=== PATIENT | female | born 2000 | race African-American/Black ===

== ENCOUNTER 2020-03-20 11:12 | Outpatient (CLI) | payer OTHER, SELFPAY ==
--- NOTE | ~2020-03-20 | XR_ITS ---
EXAMINATION: XR shunt series DATE: 03/20/2020 11:39 INDICATION: Presence of other specified devices. Ventriculoperitoneal shunt. TECHNIQUE: 2 views of the skull, single view of the chest, and single view of the abdomen on a total of 6 radiographs were obtained. COMPARISON: None. FINDINGS: There is a right-sided ventriculoperitoneal shunt with tip in the right pelvis. No fracture or kink of the radiopaque portion. There is mild elevation of right hemidiaphragm. No pneumonia or p leural effusion. The heart size is normal. There are no dilated loops of bowel. IMPRESSION: 1. Normal ventriculoperitoneal shunt. Reviewed, dictated and finalized at location A.
== END 2020-03-20 11:13 | disposition home or self-care (01) ==
LOC: ANHIMG 11:21
PROVIDERS: PCP Family Medicine; Visit Provider Psychiatry & Neurology Neurology
DX: Z97.8 Presence of other specified devices (principal)
CPT/HCPCS: 70250; 71045; 74018

== ENCOUNTER 2022-03-12 15:46 | Emergency (ER) | payer OTHER, SELFPAY ==
[2022-03-12 15:56] VITALS: BP 133/105; PULSE 79; RESP 18; TEMP 37.7; O2SAT 100
--- NOTE | 2022-03-12 15:57 | ED.URI ---
HPI - URI/Sore Throat General Chief Complaint: Upper Respiratory Infection Stated Complaint: Sore Throat,Headache Time Seen by Provider: 03/12/22 15:57 Source: patient Mode of arrival: ambulatory Limitations: no limitations History of Present Illness HPI Narrative: 21 yo F presents with c/o nasal congestion, sinus pressure, sore throat, headaches for 2 to 3 days. No fever/chills. No cough, bodyaches or fatigue. No taking any OTC meds to treat her symptoms. All systems reviewed and negative except as noted above. Related Data Home Medications Medication Instructions Recorded Confirmed amlodipine 5 mg tablet 5 mg PO DAILY 03/04/21 03/12/22 omeprazole magnesium 20 mg 20 mg PO TID 03/04/21 03/12/22 capsule,delayed release albuterol sulfate 90 mcg/actuation 1 inh inhalation DIRECTED 03/12/22 03/12/22 aerosol inhaler (ProAir HFA) Allergies Allergy/AdvReac Type Severity Reaction Status Date / Time No Known Allergies Allergy Verified 03/12/22 15:51 Review of Systems Review of Systems: CONSTITUTIONAL: Denies fever, chills, or sweats. EYES: Denies visual changes, redness, or discharge. ENT: Reports rhinorrhea, congestion, sore throat, sinus pressure. Denies otalgia. CARDIOVASCULAR: Denies chest pain, palpitations, or edema. RESPIRATORY: Denies cough or dyspnea. GASTROINTESTINAL: Denies abdominal pain, nausea, vomiting, or diarrhea. GENITOURINARY: Denies dysuria or hematuria. SKIN: Denies rash or itching. MUSCULOSKELETAL: Denies back pain, joint pain, or myalgia. NEUROLOGIC: Denies headache, numbness, or weakness. PSYCHIATRIC: Denies anxiety or depression. All other systems reviewed are negative, except as documented in HPI. PMFSH Social History Social History Smoking status: Never smoker Alcohol intake: never Comments At time of signature, agree with nursing past medical, surgical, social and family history. There is no relevant family history pertinent to the presenting complaint. Exam Narrative: GENERAL: This is a well-nourished, well-developed patient, in no apparent distress. HEAD: normocephalic, atraumatic. EYES: PERRL. Sclera clear/white. Vision is grossly intact. EARS: External ears normal, auditory canals clear and without drainage, TMs normal without perforation. Hearing grossly intact. NOSE: External nose normal with clear nasal drainage, erythema and mild swelling to both nares. Mild nasal congestion. THROAT: Mucous membranes moist, mild erythema to posterior pharynx with clear postnasal drainage. NECK: Neck supple, non-tender without lymphadenopathy, masses or thyromegaly. CARDIOVASCULAR: Regular rate and rhythm without murmurs, gallops, or rubs. RESPIRATORY: Clear to auscultation. Breath sounds equal bilaterally. No wheezes, rales, or rhonchi. SKIN: warm, Dry, intact with no suspicious lesions or rash, good texture and turgor. NEURO: awake, alert, and oriented to person, place and time. There were no obvious focal neurologic abnormalities. EXTREMITIES: No joint tenderness, effusion, or edema noted. Course Course Level of Care: Express Care Visit Vital Signs Vital signs: Reviewed MDM - URI/Sore Throat MDM Narrative Medical decision making narrative: Patient is aware of diagnosis, understands and agrees to treatment plan. Anticipatory guidance given. Patient agrees to follow-up as directed and is aware of reasons to seek care at the emergency department. Portions of this record may have been created with voice recognition software Discharge Plan Discharge Clinical Impression: Acute viral sinusitis Patient Disposition: Home, Self-Care Condition: Stable Instructions: Antibiotic Form Additional Instructions: Your covid and strep test were negative today. Take medications as prescribed to treat symptoms. Take ibuprofen or tylenol as needed to treat pain. Drink plenty of water and rest. See your doctor if symptoms
== END 2022-03-12 16:20 | disposition home or self-care (01) ==
PROVIDERS: Emergency Provider Nurse Practitioner Family; PCP Nurse Practitioner Family
DX: J01.90 Acute sinusitis, unspecified (principal); Z20.822 Contact with and (suspected) exposure to COVID-19; J45.909 Unspecified asthma, uncomplicated; K21.9 Gastro-esophageal reflux disease without esophagitis
CPT/HCPCS: 87081; 87426; 87880; 99213; C9803; G0463

== ENCOUNTER 2022-06-02 08:50 | Emergency (ER) | payer OTHER, SELFPAY ==
--- NOTE | 2022-06-02 08:55 | ED.URI ---
HPI - URI/Sore Throat General Chief Complaint: Upper Respiratory Infection Stated Complaint: uri Time Seen by Provider: 06/02/22 09:20 Source: patient and RN notes reviewed Mode of arrival: ambulatory Limitations: no limitations History of Present Illness HPI Narrative: [age] year female presents to the [facility] with body aches, fevers since yesterday. No treatment prior to arrival Reports nasal congestion and cough. Reports fevers. Related Data Home Medications Medication Instructions Recorded Confirmed amlodipine 5 mg tablet 5 mg PO DAILY 03/04/21 03/12/22 omeprazole magnesium 20 mg 20 mg PO TID 03/04/21 03/12/22 capsule,delayed release albuterol sulfate 90 mcg/actuation 1 inh inhalation DIRECTED 03/12/22 03/12/22 aerosol inhaler (ProAir HFA) Allergies Allergy/AdvReac Type Severity Reaction Status Date / Time No Known Allergies Allergy Verified 03/12/22 15:51 Review of Systems Review of Systems: All systems reviewed & are unremarkable except as noted in HPI and below Constitutional: Constitutional: Reports as per HPI, Denies chills, Reports fatigue and Reports fever(s) Eyes: Eyes: Reports no additional eye complaints ENT: Reports as per HPI and Reports nasal congestion Cardiovascular: Cardiovascular: Reports no additional cardiovascular complaints Respiratory: Respiratory: Reports no additional respiratory complaints Gastrointestinal: Gastrointestinal: Reports no additional gastrointestinal complaints Musculoskeletal: Musculoskeletal: Reports no additional musculoskeletal complaints Integumentary/Breasts: Skin/Breast: Reports system reviewed and no additional complaints, except as docu Neurologic: Reports system reviewed and no additional complaints, except as documented Psychiatric: Psychiatric: Reports no additional psychiatric complaints Allergic/Immunologic: Allergic/Immunologic: Reports no additional allergic/immunologic complaints PMFSH Social History Social History Smoking status: Never smoker Alcohol intake: never Comments At the time of my signature, I reviewed and agree with the nursing past medical, surgical, social, and family history. There is no relevant family history pertinent to the patient complaint. Exam Const: General: healthy appearing, no acute distress, alert and well nourished Nutritional Appearance: well nourished Orientation/consciousness: patient oriented x3 Limitations: no limitations HENMT: Head: normal to inspection Ears: external ears normal, TM's normal bilaterally and EAC's normal Face/Nose/Sinus: Normal external nose present and Normal nares present Face and sinus: normal facial exam Mouth: Yes Normal oral and palatal mucosa present, Yes lip normal and Yes moist mucous membranes Throat: posterior oropharynx normal and uvula midline Eyes: General: appearance normal, both eyes and all related structures Conjunctivae: conjunctivae normal Pupils: Equal, round and reactive pupils present Neck: Neck: normal visual inspection, no lymphadenopathy and no meningeal signs Chest: Chest palpation & inspection: normal inspection of the chest Resp: Effort & Inspection: normal respiratory effort and no use of accessory muscles Auscultation: clear to auscultation bilaterally, no crackles, no rales, no rhonchi and no wheezes Cardio: Rate: regular rate Rhythm: regular rhythm Skin: General skin exam: normal color Rashes: no rashes Wounds: no wounds Neuro: General: patient oriented x3, moves all extremities, no meningeal signs and no focal motor deficits Cranial nerves: Yes Equal, round and reactive pupils present Speech: normal speech Gait exam (Neuro): Normal gait present Extrem: General: normal to inspection, full ROM and capillary refill normal Psych: Appearance: grossly normal and well kempt Mental Status: mental status grossly normal Affect: normal affect Attitude: cooperative Thou
[2022-06-02 09:06] VITALS: BP 98/72; PULSE 110; RESP 20; TEMP 39.2; O2SAT 100
[2022-06-02 09:29] VITALS: TEMP 38.7
[2022-06-02] MEDS: ACETAMINOPHEN 500 MG TABLET 1000 MG PO (09:29)
== END 2022-06-02 09:40 | disposition home or self-care (01) ==
PROVIDERS: Emergency Provider Nurse Practitioner; PCP Nurse Practitioner Family
DX: J10.1 Influenza due to other identified influenza virus with other respiratory manifestations (principal); Z20.822 Contact with and (suspected) exposure to COVID-19
CPT/HCPCS: 87081; 87426; 87804; 87880; 99213; A9270; C9803; G0463

== ENCOUNTER 2022-06-20 17:07 | Emergency (ER) | payer OTHER, SELFPAY ==
--- NOTE | ~2022-06-20 | XR_ITS ---
EXAMINATION: XR ankle LT min 3V DATE: 06/20/2022 18:38 INDICATION: Left ankle pain, initial encounter TECHNIQUE: Anteroposterior, lateral, mortise, and additional oblique view of the ankle were obtained. COMPARISON: None. FINDINGS: There is an acute, traumatic, closed, oblique fracture of the distal fibula located 3 cm ab ove the tibial plafond. There is diffuse soft tissue swelling of ankle. No additional fracture is willy ntified. IMPRESSION: 1. Acute fracture of the distal fibula. Reviewed, dictated and finalized at location F. ER BU[facility]ER
[2022-06-20 18:00] VITALS: BP 166/84; PULSE 84; RESP 14; TEMP 37.1; O2SAT 100
--- NOTE | 2022-06-20 19:20 | ED.LOWEXIN ---
HPI - Extremity Injury (Lower) General Chief Complaint: Extremity Injury, Lower Stated Complaint: L foot pain s/p fall Time Seen by Provider: 06/20/22 19:04 History of Present Illness HPI Narrative: 21-year-old morbidly obese female presents to the emergency room for evaluation of left ankle pain. Patient states that she was carrying a load of laundry down the stairs when she slipped and fell. Patient was not ambulatory following the injury. Denies any other injuries Related Data Home Medications Medication Instructions Recorded Confirmed amlodipine 5 mg tablet 5 mg PO DAILY 03/04/21 03/12/22 omeprazole magnesium 20 mg 20 mg PO TID 03/04/21 03/12/22 capsule,delayed release albuterol sulfate 90 mcg/actuation 1 inh inhalation DIRECTED 03/12/22 03/12/22 aerosol inhaler (ProAir HFA) Allergies Allergy/AdvReac Type Severity Reaction Status Date / Time No Known Allergies Allergy Verified 03/12/22 15:51 Review of Systems Review of Systems: CONSTITUTIONAL: Denies fever, chills, or sweats. EYES: Denies visual changes, redness, or discharge. ENT: Denies rhinorrhea, congestion, sore throat, or otalgia. CARDIOVASCULAR: Denies chest pain, palpitations, or edema. RESPIRATORY: Denies cough or dyspnea. GASTROINTESTINAL: Denies abdominal pain, nausea, vomiting, or diarrhea. GENITOURINARY: Denies dysuria or hematuria. SKIN: Denies rash or itching. MUSCULOSKELETAL: Reports left ankle pain NEUROLOGIC: Denies headache, numbness, dizziness, or weakness. PSYCHIATRIC: Denies anxiety or depression. [facility] Social History Social History Smoking status: Never smoker Alcohol intake: never Exam Narrative: GENERAL: Well-appearing, well-nourished, morbidly obese, and in obvious acute distress. HEAD: Normocephalic, atraumatic. EYES: Conjunctivae normal, PERRLA and EOMI. CHEST: Clear to auscultation. No respiratory distress. No wheezes rales or rhonchi. HEART: Regular rate and rhythm. No murmur heard. Normal peripheral pulses. ABDOMEN: Soft, nontender, nondistended, normal active bowel sounds. EXTREMITIES: LLE: +TTP to posterior lower extremity with diffuse STS; distal pulses present; neurovascular is intact distally SKIN: Warm, dry, no rash. No noted wounds NEURO: No focal deficits. Alert and oriented x3. MAEW. CN's II-XI intact bilaterally PSYCH: Cooperative. Normal mood and affect. Course Course Emergency Course: 1929: Consulted Dr. Boggs. He recommends splinting the patient having her follow-up with him in the office later this week Vital Signs Vital signs: Vital Signs Temperature 37.1 C 06/20/22 18:00 Pulse Rate 84 06/20/22 18:00 Respiratory Rate 14 06/20/22 18:00 Blood Pressure 166/84 H 06/20/22 18:00 Pulse Oximetry 100 06/20/22 18:00 Oxygen Delivery Room Air 06/20/22 18:00 Temperature 37.1 C 06/20/22 18:00 Pulse Rate 90 06/20/22 19:45 Respiratory Rate 14 06/20/22 18:00 Blood Pressure 123/86 06/20/22 19:45 Pulse Oximetry 100 06/20/22 19:45 Oxygen Delivery Room Air 06/20/22 18:00 Discharge Plan Discharge Clinical Impression: Closed fibular fracture Patient Disposition: Home, Self-Care Condition: Stable Instructions: Antibiotic Form Prescriptions: New hydrocodone-acetaminophen 5-325 mg tablet 1 tablet PO Q8H PRN (Reason: pain) Qty: 14 0RF No Action albuterol sulfate [ProAir HFA] 90 mcg/actuation HFA aerosol inhaler 1 inh INHALATION DIRECTED fluticasone propionate [Flonase Allergy Relief] 50 mcg/actuation spray,suspension 1 spray intranasal BID Qty: 16 0RF Rx Instructions: administer into each nostril ibuprofen 800 mg tablet 800 mg PO TID PRN (Reason: pain) Qty: 30 0RF oseltamivir [Tamiflu] 75 mg capsule 75 mg PO Q12H 5 Days Qty: 10 0RF omeprazole magnesium 20 mg capsule,delayed release(DR/EC) 20 mg PO TID amlodipine 5 mg tablet 5 mg PO D
[2022-06-20] MEDS: HYDROcodone/acetaminophen (*CRX) 5-325 MG TABLET 1 TAB PO (19:38)
[2022-06-20 19:45] VITALS: BP 123/86; PULSE 90; O2SAT 100
--- NOTE | 2022-06-24 04:00 | PC.NURSE ---
Addendum, CSM intaked after right posterior short leg was placed.
== END 2022-06-20 20:13 | disposition home or self-care (01) ==
PROVIDERS: Emergency Provider Nurse Practitioner Family; PCP Nurse Practitioner Family
DX: S82.832A Other fracture of upper and lower end of left fibula, initial encounter for closed fracture (principal); W10.9XXA Fall (on) (from) unspecified stairs and steps, initial encounter; E66.01 Morbid (severe) obesity due to excess calories; Z68.44 Body mass index [BMI] 60.0-69.9, adult
CPT/HCPCS: 29515; 73610; 99284; A9270

== ENCOUNTER 2022-08-29 20:32 | Observation (INO) | payer OTHER, SELFPAY ==
[2022-08-23 10:39] VITALS: BMI 64.0
--- NOTE | 2022-08-23 10:46 | PC.NURSE ---
Report to the Outpatient Waiting Room, entrance under the green pavilion located off [facility], at time 0730 on date 08/28/22. Planned Procedure Time: 0930. Time changes happen often and if your time is changed the preop area will call you the afternoon before. - You and your visitor will be asked to self-screen and do not enter if you have any COVID symptoms. - Only one visitor is requested with a max of two and NO children visitors are allowed at this time. - The patient visitor may be requested to leave or wait in car when not with patient due to distancing restrictions. - A mask is optional within the hospital. Patients may have clear liquids (water, carbonated beverages, clear teas, apple juice) until 3 hours prior to surgery with a maximum of 20 ounces. - No food from midnight until time of surgery Take the following medications with a SIP of water the morning of surgery: INHALER, AMLODIPINE, PROPRANOLOL, SERTRALINE, TRAMADOL Medications to discontinue per physician: NAPROXEN Date to take last dose: NO MORE UNTIL AFTER SURGERY Please no make-up, nail ivorian, hairspray, perfume, deodorant, or body powder the day of surgery. No jewelry (including any body piercings) or valuables the day of surgery, leave them at home. Please take a shower or bath the night before, or the morning of, surgery with an antibacterial soap. Wear comfortable, loose fitting clothing. - Jewelry must be removed prior to entering the operating room. Rings and piercings that are not removed may be cut off. - The hospital will not accept responsibility for valuables. - Please leave all valuables, including medications, at home the day of surgery. If you are going home after surgery, a licensed log driver must drive you home. - NO public transportation without another adult if you receive anesthesia. - We recommend that an adult stay with you for 24 hours following discharge. - We also recommend that you do not drive, make important decision, drink alcoholic beverages, or take any drugs that were not prescribed by your health care provider for at least 24 hours after your discharge time. Follow any additional instructions given to you from your surgeon. If you or anyone in your household have experienced Covid symptoms in the past week, please notify your surgeon or the nurse liaison at the phone number below for possible testing. Telephone instructions given to PT Aislinn RIDER and asked if any additional questions and then verbalized understanding. Patient advised to call surgeon office or pre surgery nurse liaison [phone] if any additional questions.
--- NOTE | 2022-08-27 21:44 | PM.IMHP ---
H&P: HPI History of Present Illness Date/Time: 08/27/22 21:44 Chief Complaint: Left ankle fracture Narrative: 21yo with ankle fx. Now with nonunion/ displacement and poor alignment of ankle joint. Unable to walk. Review of Systems Review of Systems: All systems reviewed & are unremarkable except as noted in HPI and below Constitutional: Constitutional: Reports as per HPI, Denies chills, Reports fatigue and Reports fever(s) Eyes: Eyes: Reports no additional eye complaints ENT: Reports as per HPI and Reports nasal congestion Cardiovascular: Cardiovascular: Reports no additional cardiovascular complaints Respiratory: Respiratory: Reports no additional respiratory complaints Gastrointestinal: Gastrointestinal: Reports no additional gastrointestinal complaints Musculoskeletal: Musculoskeletal: Reports no additional musculoskeletal complaints Integumentary/Breasts: Skin/Breast: Reports system reviewed and no additional complaints, except as docu Neurologic: Reports system reviewed and no additional complaints, except as documented Psychiatric: Psychiatric: Reports no additional psychiatric complaints Allergic/Immunologic: Allergic/Immunologic: Reports no additional allergic/immunologic complaints [facility] Past Medical History Medical History (Updated 08/27/22 @ 21:54 by Jackson Gomez MD) Syndesmotic disruption of left ankle Social History Social History Smoking status: Never smoker Alcohol intake: never Substance use: never Substance use type: does not use Living arrangements: with family Spiritual care concerns: No Meds Home Medications and Allergies Home Medications Medication Instructions Recorded Confirmed Type omeprazole magnesium 20 mg 20 mg PO TID 03/04/21 08/23/22 History capsule,delayed release albuterol sulfate 90 mcg/actuation 1 inh inhalation DIRECTED 03/12/22 08/23/22 History aerosol inhaler (ProAir HFA) fluticasone propionate 50 1 spray intranasal BID #16 grams 03/12/22 08/23/22 Rx mcg/actuation nasal spray,suspension (Flonase Allergy Relief) sertraline 150 mg capsule 150 mg PO DAILY 08/10/22 08/23/22 History tramadol 50 mg tablet 50 mg PO BID PRN pain #30 tabs 08/10/22 08/23/22 Rx amlodipine 10 mg tablet 10 mg PO DAILY 08/23/22 08/23/22 History famotidine 40 mg tablet 40 mg PO BID 08/23/22 08/23/22 History naproxen sodium 220 mg capsule 220 mg PO Q12H PRN Pain 08/23/22 08/23/22 History propranolol 10 mg tablet 20 mg PO TID PRN Anxiety 08/23/22 08/23/22 History Allergies Allergy/AdvReac Type Severity Reaction Status Date / Time No Known Allergies Allergy Verified 08/23/22 10:35 Exam Const: General: No confusion Orientation/consciousness: No confusion HENMT: Head: normal to inspection, normocephalic and atraumatic Neck: Neck: supple and nontender Chest: Chest palpation & inspection: normal inspection of the chest Resp: Effort & Inspection: normal respiratory effort and no audible wheezes Cardio: Rate: regular rate : General: Yes deferred Skin: General skin exam: no rashes or lesions noted Neuro: General: No confusion Cranial nerves: Yes Normal hearing present Extrem: General: capillary refill normal Right upper extremity: normal to inspection Left upper extremity: normal to inspection Right lower extremity: normal to inspection and hip/thigh Details: normal to inspection Left lower extremity: hip/thigh Details: normal to inspection, knee Details: normal to inspection and knee ligament exam normal Details: anterior drawer test normal, valgus stress test normal, varus stress test normal and George's test normal, ankle (no calf tenderness) Details: abnormal to inspection ( Obvious swelling at the ankle joint), tenderness ( lateral malleolus), swelling (moderate lateral ankle), abnormal ROM Details: pain with active ROM Details: with plantar flexion and with dorsiflexion and
[2022-08-28] VITALS (25 sets, daily range): BP systolic 106–149; BP diastolic 66–90; PULSE 80–111; RESP 14–24; TEMP 36.2–37; O2SAT 94–100
--- NOTE | 2022-08-28 07:09 | WPDHPUPDATE1 ---
History and Physical Update Update Date/Time: 08/28/22 07:09 History and Physical has been reviewed, including an updated exam of the patient. There are NO changes in the patient's condition. Risks, benefits, and alternatives have been discussed and questions answered. Patient agrees to proceed with procedure.
--- NOTE | 2022-08-28 07:45 | ECG_ITS ---
Measurements Intervals [place] Rate: 79 P: 65 MI: 215 QRS: 19 QRSD: 96 T: 43 QT: 372 QTc: 428 Interpretive Statements SINUS RHYTHM WITH FIRST DEGREE AV BLOCK BORDERLINE ECG NO PREVIOUS ECG AVAILABLE FOR COMPARISON Electronically Signed On 08-28-2022 8:24:36 MAIL HANDLER ASSISTANT by Gokul Rosenthal D.O.
[2022-08-28] MEDS: ACETAMINOPHEN 500 MG TABLET 1000 MG PO (07:54)
--- NOTE | 2022-08-28 08:06 | WPDANESEPPF ---
Anes - Initial Pre Proc Eval Procedure: Operation Date: 08/28/22 09:30 Proposed Procedures p Open Reduction Internal Fixation Left Ankle Fracture - Jackson Gomez MD Date/Time: 08/28/22 08:06 Surgeon: Jackson Gomez MD Pre Op Diagnosis: left ankle fx Patient Data Age: 21 Gender: F Height: 1.65 m Weight: 174.65 kg Allergies Allergy/AdvReac Type Severity Reaction Status Date / Time No Known Allergies Allergy Verified 08/23/22 10:35 Home Medications Medication Instructions Recorded Confirmed Type omeprazole magnesium 20 mg 20 mg PO TID 03/04/21 08/23/22 History capsule,delayed release albuterol sulfate 90 mcg/actuation 1 inh inhalation DIRECTED 03/12/22 08/23/22 History aerosol inhaler (ProAir HFA) fluticasone propionate 50 1 spray intranasal BID #16 grams 03/12/22 08/23/22 Rx mcg/actuation nasal spray,suspension (Flonase Allergy Relief) sertraline 150 mg capsule 150 mg PO DAILY 08/10/22 08/28/22 History tramadol 50 mg tablet 50 mg PO BID PRN pain #30 tabs 08/10/22 08/28/22 Rx amlodipine 10 mg tablet 10 mg PO DAILY 08/23/22 08/28/22 History famotidine 40 mg tablet 40 mg PO BID 08/23/22 08/28/22 History naproxen sodium 220 mg capsule 220 mg PO Q12H PRN Pain 08/23/22 08/28/22 History propranolol 10 mg tablet 20 mg PO TID PRN Anxiety 08/23/22 08/28/22 History Patient hx anesthesia problems: none Family hx anesthesia problems: none Results Review: All pre-operative results and documents have been reviewed as part of the pre-operative evaluation. [facility] Past Medical History Medical History (Updated 08/28/22 @ 08:08 by Joe Lares MD) Anxiety Asthma Chronic GERD Depression HTN (hypertension) Morbid obesity with BMI of 60.0-69.9, adult [place] treated with BiPAP Syndesmotic disruption of left ankle Surgical History Surgical History (Updated 08/28/22 @ 08:08 by Joe Lares MD) [employer] WORKER (ventriculoperitoneal) shunt status Social History Social History Smoking status: Never smoker Alcohol intake: never Substance use: never Substance use type: does not use Living arrangements: with family Spiritual care concerns: No Anes - Eval Final PreProcedure Day of Procedure 08/28/22 08:06 Patient weight: super morbidly obese Heart: regular rate and rhythm Lungs: clear to auscultation and normal air movement Airway: Mallampati scale class II Neurological: alert and oriented Last oral intake: >/= 8 hours ASA classification: IV Emergent: no Anesthetic plan: proceed Anesthesia type and monitoring: general LMA and ETT Results Review: All pre-operative results and documents have been reviewed as part of the pre-operative evaluation. Informed Consent: The patient's anesthetic plan and its attendant risks and benefits were discussed with the patient/family/POA. Questions were solicited and answers provided to the satisfaction of the patient/family/POA.
[2022-08-28] MEDS: LACTATED RINGERS 1,000 ML 30 ML IV CONT ×2 (08:30→12:30)
[2022-08-28] MEDS: KETOROLAC 15 MG/ML VIAL (*BKC) IV PUSH (08:43)
[2022-08-28] MEDS: ceFAZolin 3 GM/D5W 100 ML 100 ML IVPB (09:13)
[2022-08-28] MEDS: BUPIVACAINE/EPINEPHRINE 0.5% 30 ML VIAL INFILTRATE (09:40)
--- NOTE | 2022-08-28 11:24 | W.PM.PROC2 ---
Procedure Note - Detailed Date of Procedure 08/28/22 Pre-op Diagnosis left ankle fx,Left distal syndesmosis disruption Post-op Diagnosis Same Procedure Performed open reduction internal fixation left ankle bimalleolar fracture and distal syndesmosis. 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 Initial attempted close treatment. She now has delayed union of the fracture, the displacement and widening of the ankle mortise. She presents for operative treatment. Description of Procedure After informed consent, the operative extremity was marked in the preoperative holding area. Patient received intravenous antibiotics.? Patient was then taken to the operating room and underwent general anesthesia by the anesthesia team.? Positioned supine on the operating room table with a soft bump under the ipsilateral hip. A time-out was performed confirming the patient, site of the surgery, operative plan. Left Lower extremity then prepped and draped in the usual sterile surgical fashion using ChloraPrep skin solution. Foot and ankle exsanguinated and a thigh tourniquet inflated to 250 mmHg.? Longitudinal incision made over the lateral ankle distal fibula with a 15 blade knife.? Hemostasis controlled with electrocautery.? Full-thickness soft tissue flaps developed and the fascia was incised in line with the skin incision. Fracture identified and cleared with a dental pick, irrigation and rongeur. Fracture reduced and held with bone-holding clamp.? Image intensification confirmed reduction of the fracture and the ankle mortise.? Fixation achieved with intramedullary fibula nail.? Stab incision made distal to the fibula.? Blunt dissection of the tip of the fibula and a guide pin was placed.? This was then over reamed.? Nail inserted to the correct depth and verified with image intensification.? 2.7 mm locking screws distally x2.? Proximal locking deployment method utilized. Good alignment and stability of the fracture noted. Image intensification used to confirm reduction of the fracture and placement of the hardware. ? Medial side then addressed.? Longitudinal incision made with a 15 blade knife over the medial malleolus fracture.? Hemostasis controlled with electrocautery.? Fascia incised in line with skin incision.? Periosteum cleared from the medial malleolus fracture.? Fracture reduced and provisionally pinned.? Fixation achieved with 4.0 mm partially threaded cancellous screw placed in cannulated screw fashion.? Image intensification confirmed reduction of the fracture and placement of the hardware.? Stress of the ankle performed? Showed instability of the ankle mortise and the syndesmosis.? Widening of the syndesmosis with valgus stress noted.? Posterior malleolus noted to be reduced and stable.? ? Syndesmosis addressed through the lateral side.? Fibular reduced under direct visualization and confirmed with image intensification.? Fixation achieved with a tight rope syndesmosis fixation system.? To these placed from lateral to medial with good stability.? Image intensification confirmed final position and stability.? Wounds thoroughly irrigated with antibiotic solution.? Fascia repaired with 00 Vicryl interrupted suture. Subcutaneous tissue repaired with 000 Monocryl interrupted suture and skin approximated with era.? Sterile dressings applied followed by bulky dressing and short-leg cast. Patient awoken from anesthesia, extubated and taken to the recovery room in stable condition.? All sponge, needle and instrument counts correct at the end of the case.? Palpable dorsalis pedis pulse noted prior to dressing. [employer] Arthrex fibula locked nail, syndesmosis tight rope x2, medial 4.0 mm cannulated screw x1 Estimated Blood Loss 5 Tourniquet Time 90 Drains No Packing No Pathology None sent Complications None Condition Stable Disposition PACU
[2022-08-28] MEDS: fentaNYL CITRATE INJ (*CRX) 100 MCG/2 ML VIAL 25 MCG IV PUSH ×8 (11:44→13:43)
--- NOTE | 2022-08-28 12:45 | SUR.PHASEI ---
1245- Patient meets PACU discharge criteria, unit bed unavailable at this time. Patient placed in extended recovery status.
[2022-08-28] MEDS: traMADol HCL (*CRX) 50 MG TABLET PO (14:31)
[2022-08-28] MEDS: KCL 20 MEQ/D5/0.45% SOD CHL 1,000 ML 80 ML IV CONT (17:24)
[2022-08-28] MEDS: MORPHINE SULFATE (*CRX) 4 MG/ML INJ 3 MG IV PUSH ×2 (17:24→21:06)
[2022-08-28] MEDS: PANTOPRAZOLE 40 MG TABLET 20 MG PO (18:31)
[2022-08-28] MEDS: NAPROXEN SODIUM 220 MG TABLET PO (20:52)
[2022-08-28] MEDS: FAMOTIDINE 20 MG TABLET 40 MG PO (20:52)
[2022-08-28] MEDS: FLUTICASONE PROPIONATE 0.05% NA SPR 16 GM BTL (*BKC) 1 SPRAY NASAL (20:52)
--- NOTE | ~2022-08-29 | XR_ITS ---
EXAMINATION: XR surgery orthopedic DATE: 08/28/2022 11:04 INDICATION: ORIF left ankle fracture TECHNIQUE: 3 fluoroscopic images of the left ankle were obtained during procedure performed by Dr. Humphrey enriquez. Radiologist was not present for the imaging or procedure. The amount of fluoroscopy time used during this procedure was 1.3 minutes. COMPARISON: 08/10 FINDINGS: Interval open reduction internal fixation of a previously displaced bimalleolar fracture of the left ankle. Alignment is now near-anatomic. The medial malleolar fracture is fixed with a cannulated lag s crew. The distal fibular metadiaphyseal fractures fixed with a retrograde intramedullary kj with shawn r of distal interlocking screws. There is also a corresponding tightrope type syndesmotic fixation wi th a pair of metallic buttons on both the medial and lateral sides of lucent tract extending across t he distal tibial and fibular metaphyses. Expected small amount of postoperative gas in the surroundin g soft tissues. No new fractures identified. IMPRESSION: 1. Expected appearance post open reduction and internal fixation of a bimalleolar fracture of the lef t ankle. Reviewed, dictated and finalized at location B. [employer] IMPRESSION: 1. Expected appearance post open reduction and internal fixation of a bimalleol ar fracture of the left ankle.
[2022-08-29 03:03] VITALS: PULSE 101; RESP 16; O2SAT 97
[2022-08-29] MEDS: MORPHINE SULFATE (*CRX) 4 MG/ML INJ 3 MG IV PUSH (03:36)
[2022-08-29 03:53] VITALS: BP 153/88; PULSE 109; RESP 20; TEMP 36.9; O2SAT 100
[2022-08-29] MEDS: SENNA/DOCUSATE SODIUM TABLET 2 TAB PO ×2 (09:02→17:16)
[2022-08-29] MEDS: polyethylene glycoL 3350 17 GM POWD.PACK PO (09:03)
[2022-08-29] MEDS: amLODIPine BESYLATE 5 MG TABLET 10 MG PO (09:03)
[2022-08-29] MEDS: SERTRALINE HCL 50 MG TABLET PO (09:03)
[2022-08-29] MEDS: FAMOTIDINE 20 MG TABLET 40 MG PO ×2 (09:03→21:15)
[2022-08-29] MEDS: FLUTICASONE PROPIONATE 0.05% NA SPR 16 GM BTL (*BKC) 1 SPRAY NASAL ×2 (09:03→21:17)
[2022-08-29] MEDS: NAPROXEN SODIUM 220 MG TABLET PO ×2 (09:04→21:17)
[2022-08-29] MEDS: PANTOPRAZOLE 40 MG TABLET 20 MG PO (09:04)
--- NOTE | 2022-08-29 09:32 | WPDANESPN ---
Anes - Prog Note Post-Op Date/Time: 08/29/22 09:32 Cardiovascular status: normal Respiratory status: normal Airway patency: baseline Mental status: baseline Post-Op hydration status: normal Vital Signs: Last Vital Signs Temp 36.9 C 08/29/22 03:53 Pulse 109 H 08/29/22 03:53 Resp 20 08/29/22 03:53 BP 153/88 H 08/29/22 03:53 Pulse Ox 100 08/29/22 03:53 O2 Del Method BiPAP 08/29/22 03:03 O2 Flow Rate 1 08/28/22 12:40 Pain Score (VAS): 2/10 I/O: Intake & Output 08/28/22 08/29/22 08/29/22 23:59 07:59 15:59 Intake Total 625 50 Output Total 300 Balance 625 -250 Post-procedural complaints: none Patient Feedback: Patient satisfied with anesthetic care.
--- NOTE | 2022-08-29 09:36 | PM.PNORT ---
Progress Note: A&P Assessment and Plan (1) Status post ORIF of fracture of ankle: Code(s): Z98.890 - Other specified postprocedural states; Z87.81 - Personal history of (healed) traumatic fracture Status: Acute Assessment and Plan: POD #1 PT/OT. NWB LLE. Elevate on pillows. Ice. Pain control. Medication regimen adjusted. Patient will have difficulty maintain NWB status of the LLE at time of discharge. Would benefit from discharge to rehab or SNF. Care coordination consulted. Dispo: SNF vs. ARF when arranged by CC (2) Morbid obesity with BMI of 60.0-69.9, adult: Code(s): E66.01 - Morbid (severe) obesity due to excess calories; Z68.44 - Body mass index [BMI] 60.0-69.9, adult Status: Acute (3) Depression: Code(s): F32.A - Depression, unspecified Status: Acute (4) Anxiety: Code(s): F41.9 - Anxiety disorder, unspecified Status: Acute (5) Chronic GERD: Code(s): K21.9 - Gastro-esophageal reflux disease without esophagitis Status: Acute (6) KOLTON treated with BiPAP: Code(s): G47.33 - Obstructive sleep apnea (adult) (pediatric) Status: Acute Assessment and Plan: BIPAP at bedside. Subjective Subjective Date/Time Seen: 08/29/22 09:36 Post Op day: 1 Interval history: POD #1: open reduction internal fixation left ankle bimalleolar fracture and distal syndesmosis. Complaints of pain. Does not feel current regimen is working. Otherwise, no complaints. Review of Systems Review of Systems: All systems reviewed & are unremarkable except as noted in HPI and below Exam Const: General: comfortable and no acute distress Resp: Effort & Inspection: normal respiratory effort Cardio: Rate: regular rate Rhythm: regular rhythm GI: Inspection: non-distended GI Palp: Yes Soft to palpation Neuro: Sensory Exam: normal sensation Extrem: Other: Left foot cast. Toes with good capillary refill. Unable to palpate pedal pulse due to cast placement. Sensation intact to toes. Psych: Mental Status: mental status grossly normal Objective Data Vital Signs Vital Signs: Vital Signs - 24 hr 08/28/22 11:17 08/28/22 11:20 08/28/22 11:25 Temperature 36.2 C L Pulse Rate 80 80 82 Respiratory Rate 22 H 14 20 Blood Pressure 146/83 H 147/90 H 119/71 Pulse Oximetry 99 94 100 Oxygen Delivery Simple Face Mask BiPAP Simple Face Mask Oxygen Flow Rate 10 10 08/28/22 11:40 08/28/22 11:55 08/28/22 11:15 Temperature Pulse Rate 84 90 81 Respiratory Rate 20 19 22 H Blood Pressure 149/83 H 133/80 Pulse Oximetry 100 100 95 Oxygen Delivery Simple Face Mask Simple Face Mask BiPAP Oxygen Flow Rate 10 10 08/28/22 12:10 08/28/22 12:20 08/28/22 12:25 Temperature Pulse Rate 89 95 86 Respiratory Rate 16 23 H 18 Blood Pressure 110/66 119/71 106/66 Pulse Oximetry 94 97 100 Oxygen Delivery Room Air Nasal Cannula Nasal Cannula Oxygen Flow Rate 2 2 08/28/22 12:40 08/28/22 12:50 08/28/22 13:05 Temperature Pulse Rate 90 88 90 Respiratory Rate 22 H 22 H 19 Blood Pressure 120/67 136/73 122/67 Pulse Oximetry 98 95 95 Oxygen Delivery Nasal Cannula Room Air Room Air Oxygen Flow Rate 1 08/28/22 13:20 08/28/22 13:35 08/28/22 13:45 Temperature 36.7 C Pulse Rate 94 92 88 Respiratory Rate 18 20 18 Blood Pressure 136/79 113/73 132/66 Pulse Oximetry 97 100 97 Oxygen Delivery Room Air Room Air Room Air Oxygen Flow Rate 08/28/22 14:00 08/28/22 14:30 08/28/22 15:00 Temperature Pulse Rate 83 89 Respiratory Rate 16 16 Blood Pressure 140/83 134/78 115/66 Pulse Oximetry Oxygen Delivery Room Air Room Air Room Air Oxygen Flow Rate 08/28/22 16:36 08/28/22 17:06 08/28/22 17:57 Temperature 36.3 C L 36.4 C L Pulse Rate 91 94 Respiratory Rate 24 H 20 Blood Pressure 130/67 121/74 Pulse Oximetry 96 96 Oxygen Delivery BiPAP Oxygen Flow Rate 08/28/22 18:06 08/28/22 20:06 08/28/22 22:11 Temperature
[2022-08-29] MEDS: ALBUTEROL SULFATE (*SP) AEROSOL 1 PUFF INHALATION (11:53)
[2022-08-29] MEDS: oxyCODONE HCL (*CRX) 5 MG TAB IR PO ×3 (12:59→21:23)
[2022-08-29 14:00] VITALS: BP 126/80; PULSE 99; RESP 20; TEMP 36.4; O2SAT 98
--- NOTE | 2022-08-29 15:13 | PC.NURSE ---
Pt pulled out second IV this shift. Refuses to have another placed. Call out to provider. Awaiting return.
[2022-08-29 20:00] VITALS: PULSE 87; RESP 15; O2SAT 98
[2022-08-29 21:51] VITALS: BP 103/52; PULSE 94; RESP 14; TEMP 36.3; O2SAT 98
[2022-08-29 23:25] VITALS: PULSE 87; RESP 15; O2SAT 98
[2022-08-30 03:32] VITALS: PULSE 79; RESP 18; O2SAT 98
[2022-08-30 09:00] VITALS: BP 123/72; PULSE 98; RESP 18; O2SAT 98
[2022-08-30] MEDS: PANTOPRAZOLE 40 MG TABLET 20 MG PO (09:23)
[2022-08-30] MEDS: amLODIPine BESYLATE 5 MG TABLET 10 MG PO (09:24)
[2022-08-30] MEDS: SERTRALINE HCL 50 MG TABLET PO (09:24)
[2022-08-30] MEDS: FAMOTIDINE 20 MG TABLET 40 MG PO (09:24)
[2022-08-30] MEDS: FLUTICASONE PROPIONATE 0.05% NA SPR 16 GM BTL (*BKC) 1 SPRAY NASAL (09:25)
[2022-08-30] MEDS: NAPROXEN SODIUM 220 MG TABLET PO (09:25)
[2022-08-30] MEDS: SENNA/DOCUSATE SODIUM TABLET 2 TAB PO (09:25)
[2022-08-30] MEDS: polyethylene glycoL 3350 17 GM POWD.PACK PO (09:25)
[2022-08-30] MEDS: oxyCODONE HCL (*CRX) 5 MG TAB IR PO (09:30)
[2022-08-30] MEDS: ALBUTEROL SULFATE (*SP) AEROSOL 1 PUFF INHALATION (10:05)
[2022-08-30 10:08] VITALS: O2SAT 95
--- NOTE | 2022-08-30 11:16 | PM.DS ---
DS: Admitting Diagnosis Discharge Date 08/30/2022 Admitting Diagnosis left ankle bimalleolar fracture delayed union with syndesmosis disruption DS: Discharge Diagnosis Discharge Diagnosis (1) Status post ORIF of fracture of ankle: Code(s): Z98.890 - Other specified postprocedural states; Z87.81 - Personal history of (healed) traumatic fracture Status: Acute Assessment and Plan: cast in place. Toe-touch weight-bearing. Physical and occupational therapy. Pain control. (2) Bimalleolar ankle fracture: Qualifiers: Encounter type: subsequent encounter Fracture type: closed Laterality: left Fracture healing: with routine healing Qualified Code(s): S82.842D - Displaced bimalleolar fracture of left lower leg, subsequent encounter for closed fracture with routine healing Code(s): S82.843A - Displaced bimalleolar fracture of unspecified lower leg, initial encounter for closed fracture Status: Acute (3) Syndesmotic disruption of left ankle: Code(s): S93.432A - Sprain of tibiofibular ligament of left ankle, initial encounter Status: Acute DS: Summary Hospital Course Reason for hospitalization: Left ankle fracture delayed union with instability and displacement. Presents for operative treatment. Hospital Course: Patient admitted postoperatively from left ankle open reduction internal fixation. Physical therapy and occupational therapy to assist with transfers and ambulation with nonweightbearing. Patient unable to perform nonweightbearing and moved to toe-touch weight-bearing. Cleared from therapy standpoint with toe-touch weight-bearing restrictions. Tolerating regular diet and pain controlled with oral medication. Unable to care for patient at home due to ADL requirements and weight-bearing status. Referred and accepted to long term. Status at Discharge Cognitive/behavioral status at discharge: Alert and oriented x3. Normal cognition. Functional status at discharge: wheelchair bound Overall status at discharge: patient is not back to baseline Time Spent with Patient Time attestation: Total time spent providing and/or coordinating discharge services: Exam Const: General: comfortable and no acute distress HENMT: Head: normal to inspection, atraumatic and other ( Shunt in place) Ears: hearing grossly normal bilaterally Neck: Neck: nontender Chest: Chest palpation & inspection: normal inspection of the chest Resp: Effort & Inspection: normal respiratory effort and no audible wheezes Cardio: Rate: regular rate Rhythm: regular rhythm GI: Inspection: non-distended GI Palp: No abdominal tenderness and Yes Soft to palpation : General: Yes deferred Skin: General skin exam: normal color Neuro: General: oriented to person, oriented to place, oriented to time and moves all extremities Cognition (Neuro): normal cognition Extrem: Right upper extremity: normal to inspection Left upper extremity: normal to inspection Right lower extremity: normal to inspection and lower leg ( negative Homans) Other: Left foot cast. Toes with good capillary refill. Unable to palpate pedal pulse due to cast placement. Sensation intact to toes. Psych: Mental Status: mental status grossly normal Discharge Plan Discharge Attending physician on discharge: Donte Bergman Discharging Clinician: Donte Bergman Anticipated Discharge Date/Time: 08/30/22 12:00 Patient Disposition: SNF Activity: follow weight bearing status and other - see discharge instructions Diet: as tolerated and heart healthy Discharge Instructions: DONTE BERGMAN M.D. [facility] [address] [place] [address] POST OPERATIVE DISCHARGE INSTRUCTIONS FOOT/ANKLE SURGERY Elevate the involved extremity on pillows. For the first 48 hours, make sure that t
== END 2022-08-30 13:20 ==
LOC: ANHSURGERY 21:16 → ANH3MEDSUR 21:16
PROVIDERS: Admitting Provider Orthopaedic Surgery; PCP Nurse Practitioner Family; Visit Provider Orthopaedic Surgery
PROC: (CPT 27814; principal; 2022-08-28 09:30)
DX: S82.842K Displaced bimalleolar fracture of left lower leg, subsequent encounter for closed fracture with nonunion (principal); S93.432D Sprain of tibiofibular ligament of left ankle, subsequent encounter; W10.9XXD Fall (on) (from) unspecified stairs and steps, subsequent encounter; F41.9 Anxiety disorder, unspecified; J45.909 Unspecified asthma, uncomplicated; K21.9 Gastro-esophageal reflux disease without esophagitis; F32.A Depression, unspecified; I10 Essential (primary) hypertension; G47.33 Obstructive sleep apnea (adult) (pediatric); E66.01 Morbid (severe) obesity due to excess calories; Z68.44 Body mass index [BMI] 60.0-69.9, adult; Z79.51 Long term (current) use of inhaled steroids; Z79.891 Long term (current) use of opiate analgesic; Z79.1 Long term (current) use of non-steroidal anti-inflammatories (NSAID); Z79.899 Other long term (current) drug therapy
CPT/HCPCS: 27814; 27829; 93005; 94002; 94640; 97162; 97166; 97530; 97535; 99199; A9270; C1713; C1769; G0378; G0379; J0690; J1100; J1170; J1885; J2250; J2270; J2405; J2704; J3010; J3480; J7120

== ENCOUNTER 2022-08-31 17:56 | Emergency (ER) | payer OTHER, SELFPAY ==
--- NOTE | 2022-08-31 18:00 | PC.NURSE ---
pt on cell phone in lobby. no distress noted.
[2022-08-31 18:41] VITALS: BP 151/83; PULSE 99; RESP 18; TEMP 36.6; O2SAT 99
[2022-08-31 20:33] VITALS: BP 142/86; PULSE 102; RESP 19; TEMP 36.4; O2SAT 97
--- NOTE | 2022-08-31 22:24 | ED.LOWEXIN ---
HPI - Extremity Injury (Lower) General Chief Complaint: Extremity Injury, Lower Stated Complaint: wet cast Time Seen by Provider: 08/31/22 21:03 Source: patient Mode of arrival: ambulatory Limitations: no limitations History of Present Illness HPI Narrative: 21-year-old s/p left bimalleolar fractures discharged from hospital yesterday here with complaints of stating her cast got wet. She she states that she put a plastic bag around her cast however water got seeped into the cast . Other symptoms: none Related Data Home Medications Medication Instructions Recorded Confirmed omeprazole magnesium 20 mg 20 mg PO TID 03/04/21 08/23/22 capsule,delayed release albuterol sulfate 90 mcg/actuation 1 inh inhalation DIRECTED 03/12/22 08/23/22 aerosol inhaler (ProAir HFA) sertraline 150 mg capsule 150 mg PO DAILY 08/10/22 08/28/22 amlodipine 10 mg tablet 10 mg PO DAILY 08/23/22 08/28/22 famotidine 40 mg tablet 40 mg PO BID 08/23/22 08/28/22 naproxen sodium 220 mg capsule 220 mg PO Q12H PRN Pain 08/23/22 08/28/22 propranolol 10 mg tablet 20 mg PO TID PRN Anxiety 08/23/22 08/28/22 Allergies Allergy/AdvReac Type Severity Reaction Status Date / Time No Known Allergies Allergy Verified 08/23/22 10:35 Review of Systems Review of Systems: All systems reviewed & are unremarkable except as noted in HPI and below Constitutional: Constitutional: Reports no additional constitutional complaints Eyes: Eyes: Reports no additional eye complaints ENT: Reports system reviewed and no additional complaints, except as documented Cardiovascular: Cardiovascular: Reports no additional cardiovascular complaints Respiratory: Respiratory: Reports no additional respiratory complaints Gastrointestinal: Gastrointestinal: Reports no additional gastrointestinal complaints Musculoskeletal: Musculoskeletal: Reports as per HPI Neurologic: Reports system reviewed and no additional complaints, except as documented [facility] Past Medical History Medical History Anxiety Asthma Chronic GERD Depression HTN (hypertension) Morbid obesity with BMI of 60.0-69.9, adult KOLTON treated with BiPAP Syndesmotic disruption of left ankle Surgical History Surgical History Status post ORIF of fracture of ankle STONE PRODUCT FABRICATOR (ventriculoperitoneal) shunt status Social History Social History Smoking status: Never smoker Alcohol intake: never Substance use: never Substance use type: does not use Living arrangements: with family Spiritual care concerns: No Exam Narrative: GENERAL: Well-appearing, well-nourished, and in no acute distress. HEAD: Normocephalic, atraumatic. EYES: PERRLA and EOMI.. NECK: Supple. CHEST: Clear to auscultation. No respiratory distress. HEART: Regular rate and rhythm. No murmur heard. Normal peripheral pulses.. EXTREMITIES: Normal range of motion. Left leg is in a cast and it is wet SKIN: Warm, dry, no rash. NEURO: No focal deficits. Alert and oriented x3. PSYCH: Normal mood and affect. Course Course Emergency Course: Notified Dr. Gomez ,will follow up in the [facility] for cast removal. Examined OCL after being placed looks good. Advised her to keep her leg elevated Vital Signs Vital signs: Vital Signs Temperature 36.6 C 08/31/22 18:41 Pulse Rate 99 08/31/22 18:41 Respiratory Rate 18 08/31/22 18:41 Blood Pressure 151/83 H 08/31/22 18:41 Pulse Oximetry 99 08/31/22 18:41 Oxygen Delivery Room Air 08/31/22 18:41 Temperature 36.4 C 08/31/22 20:33 Pulse Rate 102 H 08/31/22 20:33 Respiratory Rate 19 08/31/22 20:33 Blood Pressure 142/86 H 08/31/22 20:33 Pulse Oximetry 97 08/31/22 20:33 Oxygen Delivery Room Air 08/31/22 18:41 Discharge Plan Discharge Clinical Impression: Encounter for cast removal Patient Disp
== END 2022-09-01 00:14 | disposition home or self-care (01) ==
PROVIDERS: Emergency Provider Family Medicine; PCP Nurse Practitioner Family
DX: S82.842D Displaced bimalleolar fracture of left lower leg, subsequent encounter for closed fracture with routine healing (principal); I10 Essential (primary) hypertension; J45.909 Unspecified asthma, uncomplicated; K21.9 Gastro-esophageal reflux disease without esophagitis; G47.33 Obstructive sleep apnea (adult) (pediatric); F41.9 Anxiety disorder, unspecified; F32.A Depression, unspecified; E66.01 Morbid (severe) obesity due to excess calories; Z68.44 Body mass index [BMI] 60.0-69.9, adult; X58.XXXD Exposure to other specified factors, subsequent encounter
CPT/HCPCS: 99281

== ENCOUNTER 2022-09-23 20:59 | Emergency (ER) | payer OTHER, SELFPAY ==
--- NOTE | ~2022-09-23 | CT_ITS ---
EXAMINATION: CT brain wo con DATE: 09/23/2022 23:06 INDICATION: Headache. Dizziness. Nausea. TECHNIQUE: Computed tomography (CT) of the head was performed without intravenous contrast. The dose- length product was 681.00 mGy-cm. Automated exposure control and iterative reconstruction technique w ere employed. COMPARISON: No prior studies for comparison. FINDINGS: There is a right frontal region ventriculostomy catheter with the tip in the right lateral ventricle which is decompressed.. There is mildly dilated left ventricle. No acute infarction, hemorr rakesh, mass or mass effect. There is no significant midline shift. Paranasal sinuses and mastoids are pneumatized. IMPRESSION: 1. No acute intracranial abnormality. Reviewed, dictated and finalized at location A. PLEATER
--- NOTE | ~2022-09-23 | XR_ITS ---
XR shunt series 09/23/2022 22:49 Indication: Headache and dizziness Procedure: Shunt series including 6 images Comparison: 03/20/2020 Findings: There is a right frontal approach ventriculoperitoneal shunt with tubing coursing along the right neck, chest extending into the pelvis. No abnormalities identified. Impression: 1: Unremarkable appearance to right ventriculoperitoneal shunt. Reviewed, dictated and finalized at location A. S HOST Impression: 1: Unremarkable appearance to right ventriculoperitoneal shunt.
--- NOTE | ~2022-09-23 | CT_ITS ---
EXAMINATION: CTA chest PE protocol DATE: 09/24/2022 09:05 DAUB COLOR MIXER INDICATION: No prior studies for comparison. TECHNIQUE: Computed tomographic angiography (CTA) of the chest was performed with 100 mL Omnipaque-35 0 intravenous contrast. The dose-length product was 928.25 mGy-cm. Maximum intensity projection 3D-re constructions of the aorta and other arteries were constructed by the technologist on a separate work station. COMPARISON: None. FINDINGS: Study technically limited. No large central pulmonary embolism. No thoracic lymphadenopathy . No significant pleural or pericardial effusion. No evidence for aortic aneurysm or dissection. Ther e is a partially visualized. Ventriculoperitoneal shunt. No thoracic lymphadenopathy. The upper abdom en is unremarkable. There is a focal cleft along the posterior margin of the spleen, likely developme ntal. Mild thoracic spondylosis. No focal lytic or blastic lesions. There is patchy groundglass opaci ties which may reflect small airway disease. IMPRESSION: 1. No large central pulmonary embolism. Technically limited evaluation for peripheral pulmonary arter ies. 2: Patchy groundglass opacities, most likely secondary to small airway disease. Reviewed, dictated and finalized at location A. COLOR MIXER IMPRESSION: 1. No large central pulmonary embolism. Technically limited evaluation for tosin pheral pulmonary arteries. 2: Patchy groundglass opacities, most likely secondary to small airway disease.
[2022-09-23 21:00] VITALS: BP 162/77; PULSE 96; RESP 22; TEMP 36.4; O2SAT 99
--- NOTE | 2022-09-23 22:24 | ED.GENADULT ---
HPI - General Adult General Chief complaint: Dizziness Stated complaint: elevated bp Time Seen by Provider: 09/23/22 21:20 History of Present Illness HPI narrative: this is a 21-year-old female with history of developmental delay, PRIMARY CARE PHYSICIAN shunt, recent broken leg and morbid obesity presenting ED with dizziness. Patient says for last several days she has felt dizzy when she stands up. She notes that she has had increased urination. She has no history of diabetes that she is aware of. she endorses some nausea but denies vomiting, fever, chills, difficulty breathing, chest pain, abdominal pain. Related Data Home Medications Medication Instructions Recorded Confirmed omeprazole magnesium 20 mg 20 mg PO TID 03/04/21 09/01/22 capsule,delayed release albuterol sulfate 90 mcg/actuation 1 inh inhalation DIRECTED 03/12/22 09/01/22 aerosol inhaler (ProAir HFA) sertraline 150 mg capsule 150 mg PO DAILY 08/10/22 09/01/22 amlodipine 10 mg tablet 10 mg PO DAILY 08/23/22 09/01/22 famotidine 40 mg tablet 40 mg PO BID 08/23/22 09/01/22 naproxen sodium 220 mg capsule 220 mg PO Q12H PRN Pain 08/23/22 09/01/22 propranolol 10 mg tablet 20 mg PO TID PRN Anxiety 08/23/22 09/01/22 Allergies Allergy/AdvReac Type Severity Reaction Status Date / Time No Known Allergies Allergy Verified 09/23/22 21:55 PMFSH Past Medical History Medical History Anxiety Asthma Chronic GERD Depression HTN (hypertension) Morbid obesity with BMI of 60.0-69.9, adult KOLTON treated with BiPAP Syndesmotic disruption of left ankle Surgical History Surgical History Status post ORIF of fracture of ankle PRIMARY CARE PHYSICIAN (ventriculoperitoneal) shunt status Social History Social History Smoking status: Never smoker Alcohol intake: never Substance use: never Substance use type: does not use Living arrangements: with family Spiritual care concerns: No Exam Narrative: APPEARANCE: patient is sitting in bed in no apparent distress, Head: atraumatic. EYES: EOMI, NOSE: Atraumatic NECK: Trachea midline RESPIRATORY: clear to auscultation bilaterally. initial triage respiratory rate was 22 which she is 18 on my exam. CARDIOVASCULAR: RRR, No peripheral edema. cast over her left leg he is actually quite loose with no evidence of edema. ABDOMINAL: Non-distended obese, soft nontender MUSCULOSKELETAL: No obvious deformities, left leg is in a cast NEURO: Alert. Moving 4/4 extremities SKIN:: Warm, dry. Normal color PSYCHIATRIC: Normal affect Course Vital Signs Vital signs: Vital Signs Temperature 97.6 F 09/23/22 21:00 Pulse Rate 96 09/23/22 21:00 Respiratory Rate 22 H 09/23/22 21:00 Blood Pressure 162/77 H 09/23/22 21:00 Pulse Oximetry 99 09/23/22 21:00 Oxygen Delivery Room Air 09/23/22 21:00 Temperature 97.6 F 09/23/22 21:00 Pulse Rate 83 09/24/22 05:50 Respiratory Rate 23 H 09/24/22 05:50 Blood Pressure 129/86 09/24/22 05:50 Pulse Oximetry 100 09/24/22 05:50 Oxygen Delivery Room Air 09/23/22 21:00 Medical Decision Making MDM Narrative Medical decision making narrative: -Presentation: 21-year-old female with PRIMARY CARE PHYSICIAN shunt, developmental delay, morbid obesity presenting with dizziness. Suspect dehydration. Possibly from new onset diabetes. Will also order a PRIMARY CARE PHYSICIAN shunt series as she is complaining of headache. -DDX includes but is not limited to: PRIMARY CARE PHYSICIAN shunt malfunction, dehydration, new onset diabetes -Co-morbidities complicating care: developmental delay, PRIMARY CARE PHYSICIAN shunt, morbid obesity, recent broken leg -Social determinants of health: patient is on disability for developmental delay, lives with her mom Sera [phone] -External Chart Review: none -Hx from independent Sources: mom Sera -Discussion of Management/Consultants: -Independent interpretat
[2022-09-23] MEDS: SODIUM CHLORIDE 0.9% IV 2,000 ML 999 ML IV CONT (23:28)
[2022-09-23 23:33] VITALS: BP 140/90; PULSE 74; RESP 18; O2SAT 99
[2022-09-23 23:43] LABS: Basophils Absolute Auto 0.1 K/mm3 (0.0-0.1); Basophils Percent Auto 0.5 % (0.2-1.2); Eosinophils Absolute Auto 0.3 K/mm3 (0-0.3); Eosinophils Percent Auto 3.1 % (0-4.4); Hematocrit 36.2 % (37.0-47.0); Hemoglobin 10.9 g/dL (12.0-15.0); Immature Granulocyte Absolute 0.02 K/mm3 (0.00-0.031); Immature Granulocyte Percent A 0.2 % (0-0.5); Lymphocytes Absolute Auto 2.45 K/mm3 (0.9-3.2); Lymphocytes Percent Auto 25.6 % (18.3-44.2); Mean Corpuscular HGB Conc 30.1 g/dl (32-36); Mean Corpuscular Hemoglobin 22.8 pg (26-34); Mean Corpuscular Volume 75.7 fl (80-100); Mean Platelet Volume 9.9 fl (7.4-10.4); Monocytes Absolute Auto 0.8 K/mm3 (0.1-0.6); Monocytes Percent Auto 8.2 % (2.6-8.5); Neutrophils Percent Auto 62.4 % (45.5-73.1); Platelet Count Result 417 k/mm3 (150-375); Red Blood Count 4.78 M/mm3 (4.2-5.4); Red Cell Distribution Width 15.6 % (11.5-14.5); White Blood Count 9.6 K/mm3 (4.5-10.0)
[2022-09-23 23:57] LABS: Alanine Aminotransferase 15 U/L (6-35); Alkaline Phosphatase 85 U/L (38-126); Anion Gap 4 mmol/L (8-16); Aspartate Amino Transferase 19 U/L (14-36); Bilirubin,Total 0.5 mg/dL (0.2-1.3); Blood Urea Nitrogen 10 mg/dL (7-17); Calcium 8.6 mg/dL (8.4-10.2); Carbon Dioxide 29 mmol/L (22-30); Chloride 102 mmol/L (98-107); Estimated CRCL calculation 180 ml/min; Estimated Glomerular Filt Rate > 60; Glucose 96 mg/dL (65-110); Lipase 40 U/L (23-300); Magnesium 1.7 mg/dL (1.6-2.3); Sodium 135 mmol/L (137-145)
[2022-09-24 00:13] LABS: Appearance Urine Clear (Clear); Bilirubin Urine Negative (Negative); Blood Urine Trace-intact (Negative); Color Urine Yellow (Yellow); Glucose Urine UA Negative (Negative); Ketones Urine Negative (Negative); Leukocyte Esterase Ur Negative LEU/UL (Negative); Nitrate Urine Negative (Negative); Protein Urine 1+ mg/dL (Negative); Specific Grav Ur 1.025 (1.001-1.035); pH Urine 5.5 (5.0-9.0)
[2022-09-24 00:19] LABS: Add Urine Microscopic? YES; Mucus Urine Rare /lpf; Squamous Epithelial Cell Urine Many /hpf (Few)
[2022-09-24 00:22] LABS: Influenza A QL RT-PCR Negative (Negative); Influenza B QL RT-PCR Negative (Negative); RSV RNA, RT-PCR Negative (Negative); SARS-CoV-2 RNA PCR Negative
[2022-09-24 00:42] VITALS: BP 132/70; PULSE 80; RESP 24; O2SAT 100
--- NOTE | 2022-09-24 01:07 | PC.NURSE ---
Called lab for add-ons
[2022-09-24 01:29] VITALS: BP 118/84; PULSE 76; RESP 22; O2SAT 100
[2022-09-24] MEDS: ACETAMINOPHEN 500 MG TABLET 1000 MG PO (01:34)
[2022-09-24 01:39] LABS: NT Pro B Type Natriuretic Pept 23 pg/mL (19.9-100); Troponin I < 0.012 ng/mL (0.000-0.034)
[2022-09-24 01:55] LABS: D Dimer 2.57 ug/mL (<0.48)
[2022-09-24 03:15] LABS: Pregnancy On Board Control Positive; Urine Pregnancy Test Negative
[2022-09-24 03:48] VITALS: BP 148/93; PULSE 89; RESP 19; O2SAT 98
[2022-09-24 04:29] VITALS: BP 119/74; PULSE 74; RESP 14; O2SAT 97
[2022-09-24 05:50] VITALS: BP 129/86; PULSE 83; RESP 23; O2SAT 100
--- NOTE | 2022-09-24 06:17 | ECG_ITS ---
Measurements Intervals Nixon Rate: 73 P: 26 WA: 207 QRS: 1 QRSD: 104 T: 18 QT: 396 QTc: 437 Interpretive Statements SINUS RHYTHM WITH FIRST-DEGREE AV BLOCK RSR' IN V1/V2 MINIMAL VOLTAGE CRITERIA FOR LVH, CONSIDER NORMAL VARIANT BORDERLINE ECG COMPARED TO ECG 08/28/2022 08:05:00 NO SIGNIFICANT CHANGES Electronically Signed On 09-24-2022 14:48:13 BAR HOST/HOSTESS by Celio Kothari M.D.
== END 2022-09-24 06:42 | disposition home or self-care (01) ==
PROVIDERS: Emergency Provider Emergency Medicine; PCP Nurse Practitioner Family
DX: R42 Dizziness and giddiness (principal); Z20.822 Contact with and (suspected) exposure to COVID-19; J45.909 Unspecified asthma, uncomplicated; I10 Essential (primary) hypertension; K21.9 Gastro-esophageal reflux disease without esophagitis; G47.33 Obstructive sleep apnea (adult) (pediatric); F41.9 Anxiety disorder, unspecified; F32.A Depression, unspecified; E66.01 Morbid (severe) obesity due to excess calories; Z68.44 Body mass index [BMI] 60.0-69.9, adult; Z98.2 Presence of cerebrospinal fluid drainage device; I44.0 Atrioventricular block, first degree
CPT/HCPCS: 36415; 70250; 70450; 71045; 71275; 74018; 80053; 81001; 81025; 83690; 83735; 83880; 84484; 85025; 85380; 87637; 93005; 96360; 96361; 99284; A9270; J7030; Q9967

== ENCOUNTER 2022-11-14 08:21 | Outpatient (CLI) | payer OTHER, SELFPAY ==
--- NOTE | 2022-11-28 14:45 | WPDHOMESLEEP ---
Sleep Study - Home Unattended Date of Study: 11/14/22 Ordering Provider: Bhavna Magana, MICHAEL Interpreting Provider: Anne Barrera, DO Home Sleep Study Type: Apnea Link Air Height: 1.65 m Weight: 181.437 kg Body Mass Index: 66.5 Neck Circumference (inches): 18 Snook: 6 Reason for Sleep Study Needs new BPAP machine Sleep History The patient is a 22-year-old female with anemia, migraines, ventriculoperitoneal shunt in situ, asthma, anxiety, GERD, hypertension, morbid obesity and KOLTON on BPAP that had a sleep study ordered to get a new machine. The patient denies awakening from sleep short of breath. She occasionally awakens at night with heartburn, belching or cough. She denies snoring. She frequently has trouble sleeping when she has a cold. She denies waking up gasping for air throughout the night. She denies having breathing problems at night observed by herself or others. She denies sweating excessively at night. She denies having heart palpitations or irregular heartbeats during the night. She rarely falls asleep during the day and never falls asleep while driving. She denies sleep paralysis, cataplexy and hypnagogic / hypnopompic hallucinations. She denies having trouble at school or work due to sleepiness. She denies feeling afraid of going to sleep. She denies having nightmares. She denies remembering her dreams. She constantly has thoughts racing through her mind. She occasionally feels sad or depressed. She constantly has anxiety. She denies having muscular tension. She denies noticing parts of her body jerk. She denies kicking during the night. She denies having crawling and aching feelings in her legs and denies having leg pain during the night. She denies grinding her teeth during sleep and denies awakening with morning jaw pain. She is occasionally bothered by pain during the day but never awakened by pain during the night. She constantly wakes up feeling stiff in the morning. She occasionally wakes up with sore or achy muscles. She rarely wakes up with pain in the neck, spine or other joints. She goes to bed at 11:00 p.m. on both weekdays and weekends. She is able to fall asleep within a few minutes. She wakes up once throughout the night to urinate. She wakes up at 10:00 a.m. on both weekdays and weekends. She typically gets 6-8 hours of sleep per night. She does not stay in bed after waking up in the morning. She currently lives with multiple family members. She does not consume any caffeinated beverages within 2 hours of bedtime. She does not engage in physical exercise before bedtime. She will watch television before falling asleep. She denies taking naps in the afternoon or the evening. She will consume caffeinated beverages throughout the day. She denies tobacco, alcohol and recreational drug use. 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
[2022-11-28 14:53] VITALS: BMI 66.5
--- NOTE | 2022-12-12 16:44 | WPDHOMESLEEP ---
Sleep Study - Home Unattended Date of Study: 11/14/22 Ordering Provider: Bhavna Magana, PA Interpreting Provider: Anne Barrera, DO Home Sleep Study Type: Apnea Link Air Height: 1.65 m Weight: 181.437 kg Body Mass Index: 66.5 Neck Circumference (inches): 18 Bigelow: 6 Reason for Sleep Study Needs new BPAP machine and has to have an updated study to qualify Sleep History The patient is a 22-year-old female with anemia, hypertension, GERD, anxiety, migraines, asthma, morbid obesity, ventriculoperitoneal shunt insight 2 and previously diagnosed sleep apnea on BPAP that had a sleep study ordered so she can get a new machine.? The patient denies awakening from sleep short of breath.? She occasionally awakens at night with heartburn, belching or cough.? She denies snoring and denies snoring loud enough that others complain.? She frequently has trouble sleeping when she has a cold.? She denies waking up gasping for air throughout the night.? She denies having breathing problems at night observed by herself or others.? She denies sweating excessively at night.? He denies having heart palpitations or irregular heartbeats during the night.? She rarely falls asleep during the day and never while driving.? She denies sleep paralysis, cataplexy and hypnagogic/hypnopompic hallucinations.? She denies having trouble at school or work due to sleepiness.? She denies feeling afraid of going to sleep.? She denies having nightmares and denies remembering her dreams.? She constantly has thoughts racing through her mind.? She occasionally feels sad or depressed.? She constantly has anxiety.? She denies having muscular tension.? She denies noticing parts of her body jerk.? She denies kicking during the night.? She denies having crawling and aching feelings in her legs and denies having leg pain during the night.? She denies grinding her teeth during sleep denies awakening with morning jaw pain.? She is occasionally bothered by pain during the day but never awakened by pain during the night.? She constantly wakes up feeling stiff in the morning.? She occasionally wakes up with sore or achy muscles.? She rarely wakes up with pain in the neck, spine or other joints.? She goes to bed at 11:00 p.m. on both weekdays and weekends.? It takes her a few minutes to fall asleep.? She wakes up once throughout the night to urinate and is able to fall back asleep quickly.? She wakes up at 10:00 a.m. on both weekdays and weekends.? She typically gets 6-8 hours of sleep per night.? She does not stay bed after waking up in.? She currently lives with her mom several other family members.? She does not consume any caffeinated beverages within 2 hours of bedtime.? She does not engage in physical exercise before bedtime.? She will watch television before falling asleep.? She denies taking naps in the afternoon with the evening.? She does consume caffeinated beverages throughout the day.? She denies tobacco, alcohol and recreational drug use. 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
[2022-12-12 16:48] VITALS: BMI 66.5
== END 2022-11-15 09:47 | disposition home or self-care (01) ==
LOC: ANHCSM 08:22
PROVIDERS: PCP Nurse Practitioner Family; Visit Provider Physician Assistant
DX: G47.9 Sleep disorder, unspecified (principal); I10 Essential (primary) hypertension; E66.01 Morbid (severe) obesity due to excess calories; Z68.44 Body mass index [BMI] 60.0-69.9, adult
CPT/HCPCS: 95806

== ENCOUNTER 2022-12-03 07:13 | Outpatient (CLI) | payer OTHER, SELFPAY ==
--- NOTE | 2022-12-25 10:17 | WPDSLEEPSTUD ---
Sleep Study Date of Study: 12/03/22 Ordering Provider: Wilma Eller, Interpreting Physician: Katrina Canas MD Sleep Study Type: Split Polysomnogram Height: 1.63 m Weight: 181.437 kg Body Mass Index: 68.6 Neck Circumference (inches): 19 Purdy: 7 Reason for Sleep Study * 11/14/2022 home sleep test using ApneaLink -?overall AHI of 2.8 with desaturation down to 80%. This was not sufficient for her to qualify for a new BPAP machine, so she is being retested in the sleep lab. Sleep History Arcelia Calzada is a 22 yo female with history of obstructive sleep apnea on BiPAP that had a sleep study ordered to get a new machine. She had a home sleep test 11/14/22 that did not show enough events to qualify for PAP which was felt to be likely a false negative study, especially if she wore BiPAP up until the night of the home sleep test. She presented to the lab for a split night study with the purpose of obtaining new PAP equipment. She has?anemia, hypertension, GERD, anxiety, migraines, asthma, morbid obesity, ventriculoperitoneal shunt and previously diagnosed sleep apnea on BPAP. She was retested with a home sleep test 11/14/22 in order to qualify for a new machine, however the results were not sufficient for her to qualify. The patient denies awakening from sleep short of breath.? She occasionally awakens at night with heartburn, belching or cough.? She denies snoring and denies snoring loud enough that others complain.? She frequently has trouble sleeping when she has a cold.? She denies waking up gasping for air throughout the night.? She denies having breathing problems at night observed by herself or others.? She denies sweating excessively at night.? He denies having heart palpitations or irregular heartbeats during the night.? She rarely falls asleep during the day and never while driving.? She denies feeling paralyzed with strong emotions, of having vivid dreamlike scenes on waking or falling asleep. She denies having trouble at school or work due to sleepiness.? She denies feeling afraid of going to sleep.? She denies having nightmares and denies remembering her dreams.? She constantly has thoughts racing through her mind.? She occasionally feels sad or depressed.? She constantly has anxiety.? She denies having muscular tension.? She denies noticing parts of her body jerk.? She denies kicking during the night.? She denies having crawling and aching feelings in her legs and denies having leg pain during the night.? She denies grinding her teeth during sleep denies awakening with morning jaw pain.? She is occasionally bothered by pain during the day but never awakened by pain during the night.? She constantly wakes up feeling stiff in the morning.? She occasionally wakes up with sore or achy muscles.? She rarely wakes up with pain in the neck, spine or other joints.? She goes to bed at 11:00 p.m. on both weekdays and weekends.? It takes her a few minutes to fall asleep.? She wakes up once throughout the night to urinate and is able to fall back asleep quickly.? She wakes up at 10:00 a.m. on both weekdays and weekends.? She typically gets 6-8 hours of sleep per night.? She currently lives with her mom several other family members.?She does not engage in physical exercise before bedtime.? She denies taking naps in the afternoon or evening.? Habits: No tobacco. Caffeine: caffeinated beverages throughout the day.? No alcohol or recreational substances. 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
[2022-12-25 10:45] VITALS: BMI 68.6
== END 2022-12-04 07:15 | disposition home or self-care (01) ==
LOC: ANHCSM 07:18
PROVIDERS: PCP Nurse Practitioner Family; Visit Provider Family Medicine
DX: G47.30 Sleep apnea, unspecified (principal); G47.33 Obstructive sleep apnea (adult) (pediatric)
CPT/HCPCS: 95811

== ENCOUNTER 2023-03-14 10:10 | Emergency (ER) | payer OTHER, SELFPAY ==
[2023-03-14] VITALS (7 sets, daily range): BP systolic 97–144; BP diastolic 62–90; PULSE 68–90; RESP 16–21; TEMP 36.6; O2SAT 96–100
--- NOTE | ~2023-03-14 | CT_ITS ---
EXAMINATION: CT brain wo con DATE: 03/14/2023 11:48 INDICATION: Headache. TECHNIQUE: Computed tomography (CT) of the head was performed without intravenous contrast. The mA wa s adjusted according to patient size. Iterative reconstruction technique was employed. The dose-lengt h product was 681.00 mGy-cm. COMPARISON: Head CT 09/23/2022 FINDINGS: There is no intracranial hemorrhage, acute infarction, or abnormal intracranial mass lesion . Right lateral ventricle is small. There is a right frontal ventriculostomy catheter with tip in bod y of right lateral ventricle. There is an mild enlargement of body and trigone of left lateral ventri gus. There is chronic 6 mm leftward midline shift. The paranasal sinuses are clear. The orbits are no rmal. The mastoid air cells are normal. IMPRESSION: 1. Small right lateral ventricle and mildly enlarged left lateral ventricle without change. Shunt cat heter unchanged in position. Reviewed, dictated and finalized at location A. IMPRESSION: 1. Small right lateral ventricle and mildly enlarged left lateral ventricle wit hout change. Shunt catheter unchanged in position.
[2023-03-14 11:34] LABS: Basophils Absolute Auto 0.1 K/mm3 (0.0-0.1); Basophils Percent Auto 0.7 % (0.2-1.2); Eosinophils Absolute Auto 0.2 K/mm3 (0-0.3); Eosinophils Percent Auto 2.7 % (0-4.4); Hematocrit 35.5 % (37.0-47.0); Hemoglobin 10.7 g/dL (12.0-15.0); Immature Granulocyte Absolute 0.02 K/mm3 (0.00-0.031); Immature Granulocyte Percent A 0.3 % (0-0.5); Lymphocytes Percent Auto 24.5 % (18.3-44.2); Mean Corpuscular HGB Conc 30.1 g/dl (32-36); Mean Corpuscular Hemoglobin 22.5 pg (26-34); Mean Corpuscular Volume 74.7 fl (80-100); Mean Platelet Volume 10.2 fl (7.4-10.4); Monocytes Absolute Auto 0.6 K/mm3 (0.1-0.6); Neutrophils Absolute Auto 4.7 K/mm3 (1.3-6.7); Neutrophils Percent Auto 63.8 % (45.5-73.1); Platelet Count Result 455 k/mm3 (150-375); Red Blood Count 4.75 M/mm3 (4.2-5.4); Red Cell Distribution Width 15.8 % (11.5-14.5); White Blood Count 7.4 K/mm3 (4.5-10.0)
[2023-03-14 11:50] LABS: Alanine Aminotransferase 18 U/L (6-35); Alkaline Phosphatase 71 U/L (38-126); Anion Gap 7 mmol/L (8-16); Aspartate Amino Transferase 25 U/L (14-36); Bilirubin,Total 0.8 mg/dL (0.2-1.3); Blood Urea Nitrogen 16 mg/dL (7-17); Calcium 8.5 mg/dL (8.4-10.2); Carbon Dioxide 25 mmol/L (22-30); Chloride 106 mmol/L (98-107); Estimated CRCL calculation 180 ml/min; Estimated Glomerular Filt Rate > 60; Glucose 91 mg/dL (65-110); Magnesium 1.8 mg/dL (1.6-2.3); Potassium 3.7 mmol/L (3.4-5.0); Sodium 138 mmol/L (137-145)
[2023-03-14] MEDS: diphenhydrAMINE HCl INJ 50 MG/ML VIAL 25 MG IV PUSH (11:50)
[2023-03-14] MEDS: METOCLOPRAMIDE HCL INJ 10 MG/2 ML VIAL IV PUSH (11:50)
[2023-03-14] MEDS: ACETAMINOPHEN 500 MG TABLET 1000 MG PO (11:50)
[2023-03-14] MEDS: SODIUM CHLORIDE 0.9% IV 1,000 ML 999 ML IV CONT (11:51)
[2023-03-14 11:52] LABS: Platelet Estimate Increased (Adequate)
[2023-03-14 11:53] LABS: Microcytosis 1+ (NORMAL); Schistocytes None Seen (NORMAL)
--- NOTE | 2023-03-14 12:17 | ED.HA ---
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 Patient reports [place] She states she felt like she became overheated and dehydrated. She began having a headache and nausea yesterday, which persisted into today. She has been drinking fluids, but denies improvement. She has not tried anything for the pain. Denies any vomiting. Denies abdominal pain. Denies dizziness, lightheadedness, vision changes, neck pain, fevers. Related Data Home Medications Medication Instructions Recorded Confirmed omeprazole magnesium 20 mg 20 mg PO TID 03/04/21 02/20/23 capsule,delayed release albuterol sulfate 90 mcg/actuation 1 inh inhalation DIRECTED 03/12/22 02/20/23 aerosol inhaler (ProAir HFA) sertraline 150 mg capsule 150 mg PO DAILY 08/10/22 02/20/23 amlodipine 10 mg tablet 10 mg PO DAILY 08/23/22 02/20/23 famotidine 40 mg tablet 40 mg PO BID 08/23/22 02/20/23 naproxen sodium 220 mg capsule 220 mg PO Q12H PRN Pain 08/23/22 02/20/23 propranolol 10 mg tablet 20 mg PO TID PRN Anxiety 08/23/22 02/20/23 Allergies Allergy/AdvReac Type Severity Reaction Status Date / Time No Known Allergies Allergy Verified 03/14/23 10:31 Review of Systems Review of Systems: CONSTITUTIONAL: Denies fever, chills, or sweats. EYES: Denies visual changes. CARDIOVASCULAR: Denies chest pain. RESPIRATORY: Denies dyspnea. GASTROINTESTINAL: See HPI. MUSCULOSKELETAL: Denies back pain, neck pain. NEUROLOGIC: See HPI. 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 (ventriculoperitoneal) shunt status Social History Social History Smoking status: Never smoker Alcohol intake: never Substance use: never Substance use type: does not use Lack of Transportation: No Lack of Food: Never True Current Housing: I Have Housing Concerned About Future Housing: No Difficulty Paying Gas/Electric Bills: No Difficulty Paying for Meds: No Currently Unemployed: No Education: High School Diploma/GED Difficulty w/ Childcare or Family Care: No Living arrangements: with family Spiritual care concerns: No Exam Narrative: GENERAL: Well appearing, morbidly obese with BMI of 65.7, non-toxic, in no acute distress. HEAD: Normocephalic, atraumatic. EYES: PERRLA/EOMI, conjunctiva clear. No nystagmus. NECK: Supple. No adenopathy, no masses. No meningeal signs. Full nonpainful ROM. RESPIRATORY: Airway patent, respirations nonlabored. Clear to auscultation bilaterally, no rales, rhonchi, wheezing. CARDIOVASCULAR: Regular rate and rhythm without murmurs, rubs, or gallops. Radial pulses 2+ and equal bilaterally. ABDOMINAL: Soft, nontender, nondistended, no hepatosplenomegaly. Normoactive BS. MUSCULOSKELETAL: Moves all extremities. Strength/ROM intact without gross deformities. SKIN: Warm, dry, normal color. No rashes. NEURO: A&O X3. Speech clear. Cranial nerves II-XII grossly intact. Steady gait. No ataxic movements. No focal neurologic deficits. PSYCHIATRIC: Appropriate mood and affect. Normal interaction. Course Vital Signs Vital signs: Vital Signs Temperature 97.8 F 08/0
[2023-03-14] MEDS: KETOROLAC 30 MG/ML VIAL (*BKC) IV PUSH (12:48)
== END 2023-03-14 13:44 | disposition home or self-care (01) ==
PROVIDERS: Emergency Provider Physician Assistant; PCP Nurse Practitioner Family
DX: R51.9 Headache, unspecified (principal); R11.0 Nausea; J45.909 Unspecified asthma, uncomplicated; E66.01 Morbid (severe) obesity due to excess calories; Z68.44 Body mass index [BMI] 60.0-69.9, adult; K21.9 Gastro-esophageal reflux disease without esophagitis; G47.33 Obstructive sleep apnea (adult) (pediatric); F32.A Depression, unspecified; F41.9 Anxiety disorder, unspecified; Z98.2 Presence of cerebrospinal fluid drainage device; X30.XXXA Exposure to excessive natural heat, initial encounter
CPT/HCPCS: 36415; 70450; 80053; 83735; 85025; 96361; 96374; 96375; 99284; A9270; J1200; J1885; J2765; J7030

== ENCOUNTER 2023-06-06 16:01 | Emergency (ER) | payer OTHER, SELFPAY ==
[2023-06-06 16:25] VITALS: BP 142/96; PULSE 102; RESP 19; TEMP 36.8; O2SAT 98
--- NOTE | 2023-06-06 16:54 | ED.ABDPAIN ---
HPI - Abdominal Pain General Chief Complaint: Abdominal Pain Stated Complaint: ab pain, Time Seen by Provider: 06/06/23 16:29 History of Present Illness HPI narrative: 22-year-old female with a history of KOLTON, GERD and hypertension reports for evaluation for generalized abdominal pain x1-2 week. Patient states at the onset of abdominal pain, she had nausea and diarrhea. States the diarrhea resolved 2 to 3 days ago but the nausea and abdominal pain still persist. When asked her where her abdomen hurts, she pointed to her epigastrium, right upper quadrant and left upper quadrant, but states it moves around frequently. She describes the pain as a cramping sensation and cannot identify any aggravating or alleviating factors, including eating. Her last bowel movement was today and normal. She is also reporting decreased urine output for the past day. She states she feels like she keeps having go to urinate but then only small amount comes out. States she thinks this may be due to decreased fluid intake. She denies dysuria or hematuria. Denies fever, cough or congestion. LMP 1 week ago. Denies vaginal discharge or concern for STDs. Related Data Home Medications Medication Instructions Recorded Confirmed omeprazole magnesium 20 mg 20 mg PO TID 03/04/21 05/22/23 capsule,delayed release albuterol sulfate 90 mcg/actuation 1 inh inhalation DIRECTED 03/12/22 05/22/23 aerosol inhaler (ProAir HFA) sertraline 150 mg capsule 150 mg PO DAILY 08/10/22 05/22/23 amlodipine 10 mg tablet 10 mg PO DAILY 08/23/22 05/22/23 famotidine 40 mg tablet 40 mg PO BID 08/23/22 05/22/23 naproxen sodium 220 mg capsule 220 mg PO Q12H PRN Pain 08/23/22 05/22/23 propranolol 10 mg tablet 20 mg PO TID PRN Anxiety 08/23/22 05/22/23 Allergies Allergy/AdvReac Type Severity Reaction Status Date / Time No Known Allergies Allergy Verified 06/06/23 16:30 Review of Systems Review of Systems: CONSTITUTIONAL: Denies fever, chills EYES: Denies visual changes, redness, or discharge. ENT: Denies rhinorrhea, congestion, sore throat, or otalgia. CARDIOVASCULAR: Denies chest pain, palpitations, or edema. RESPIRATORY: Denies cough or dyspnea. GASTROINTESTINAL: See HPI GENITOURINARY: See HPI SKIN: Denies rash or itching. MUSCULOSKELETAL: Denies back pain, joint pain, or myalgia. NEUROLOGIC: Denies headache, numbness, dizziness, or weakness. PSYCHIATRIC: Denies anxiety or depression. 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 Patient resting comfortably in exam bed. HEAD: Normocephalic EYES: PERRLA ENT: Nares clear. Mucous membranes moist. Oropharynx without tonsillar hypertrophy exudate or other lesions. NECK: Supple. CHEST: No respiratory distress. Clear to auscultation, no adventitious breath sounds. HEART: Regular rate and rhythm. No murmur heard. Normal peripheral pulses. ABDOMEN: Normal active b
[2023-06-06 17:02] LABS: Basophils Absolute Auto 0.1 K/mm3 (0.0-0.1); Basophils Percent Auto 0.5 % (0.2-1.2); Eosinophils Absolute Auto 0.3 K/mm3 (0-0.3); Eosinophils Percent Auto 3.4 % (0-4.4); Hematocrit 37.7 % (37.0-47.0); Immature Granulocyte Absolute 0.03 K/mm3 (0.00-0.031); Immature Granulocyte Percent A 0.3 % (0-0.5); Lymphocytes Absolute Auto 2.96 K/mm3 (0.9-3.2); Lymphocytes Percent Auto 31.9 % (18.3-44.2); Mean Corpuscular HGB Conc 29.2 g/dl (32-36); Mean Corpuscular Hemoglobin 22.3 pg (26-34); Mean Corpuscular Volume 76.5 fl (80-100); Mean Platelet Volume 9.7 fl (7.4-10.4); Monocytes Absolute Auto 0.6 K/mm3 (0.1-0.6); Monocytes Percent Auto 6.9 % (2.6-8.5); Neutrophils Absolute Auto 5.3 K/mm3 (1.3-6.7); Platelet Count Result 503 k/mm3 (150-375); Red Blood Count 4.93 M/mm3 (4.2-5.4); Red Cell Distribution Width 16.3 % (11.5-14.5); White Blood Count 9.3 K/mm3 (4.5-10.0)
[2023-06-06] MEDS: MORPHINE SULFATE (*CRX) 4 MG/ML INJ IV PUSH (17:08)
[2023-06-06] MEDS: ONDANSETRON INJ 4 MG/2 ML VIAL IV PUSH (17:08)
[2023-06-06] MEDS: FAMOTIDINE 20 MG/2 ML VIAL IV PUSH (17:08)
[2023-06-06] MEDS: SODIUM CHLORIDE 0.9% IV 1,000 ML 999 ML IV CONT (17:08)
[2023-06-06 17:17] LABS: Alanine Aminotransferase 13 U/L (6-35); Albumin Level 4.1 g/dL (3.5-5.1); Alkaline Phosphatase 70 U/L (38-126); Anion Gap 6 mmol/L (8-16); Aspartate Amino Transferase 19 U/L (14-36); Bilirubin,Total 0.5 mg/dL (0.2-1.3); Blood Urea Nitrogen 15 mg/dL (7-17); Calcium 8.8 mg/dL (8.4-10.2); Carbon Dioxide 28 mmol/L (22-30); Chloride 101 mmol/L (98-107); Estimated CRCL calculation 126 ml/min; Estimated Glomerular Filt Rate > 60; Glucose 88 mg/dL (65-110); Lipase 56 U/L (23-300); Potassium 4.2 mmol/L (3.4-5.0); Sodium 135 mmol/L (137-145)
[2023-06-06 17:18] LABS: Appearance Urine Slightly Cloudy (Clear); Bilirubin Urine Negative (Negative); Blood Urine Trace-intact (Negative); Color Urine Yellow (Yellow); Glucose Urine UA Negative (Negative); Ketones Urine Negative (Negative); Leukocyte Esterase Ur Negative LEU/UL (Negative); Nitrate Urine Negative (Negative); Protein Urine Trace mg/dL (Negative); Specific Grav Ur >= 1.030 (1.001-1.035); Urobilinogen Urine 0.2 mg/dL (<2.0); pH Urine 5.5 (5.0-9.0)
[2023-06-06 17:46] LABS: Platelet Estimate Increased (Adequate)
[2023-06-06 17:47] LABS: Anisocytosis 2+ (NORMAL); Hypochromasia 1+ (NORMAL); Schistocytes None Seen (NORMAL)
[2023-06-06 18:08] LABS: RBC Urine 0-2 /hpf (0-2); WBC Urine 0-3 /hpf (0-3)
[2023-06-06 18:09] LABS: Squamous Epithelial Cell Urine Moderate /hpf (Few)
[2023-06-06 18:10] LABS: Amorphous Sediment Urine Few; Bacteria Urine Trace /hpf
[2023-06-06 18:11] LABS: Add Urine Microscopic? YES
[2023-06-06] MEDS: BELLADONNA ALK/PHENOB ELIX 10 ML, MAG HYDROX/ALUMINUM HYD/SIMETH 30 ML, LIDOCAINE HCL 2... PO (19:11)
[2023-06-06] MEDS: DICYCLOMINE HCL 10 MG CAPSULE 20 MG PO (19:12)
--- NOTE | 2023-06-06 20:06 | PC.NURSE ---
Bladder scan 83 ml
== END 2023-06-06 20:07 | disposition home or self-care (01) ==
PROVIDERS: Emergency Medicine; Emergency Provider Physician Assistant; PCP Family Medicine
DX: R10.84 Generalized abdominal pain (principal); J45.909 Unspecified asthma, uncomplicated; K21.9 Gastro-esophageal reflux disease without esophagitis; G47.33 Obstructive sleep apnea (adult) (pediatric); E66.01 Morbid (severe) obesity due to excess calories; Z68.44 Body mass index [BMI] 60.0-69.9, adult; F41.9 Anxiety disorder, unspecified; F32.A Depression, unspecified; Z98.2 Presence of cerebrospinal fluid drainage device
CPT/HCPCS: 36415; 80053; 81001; 81025; 83690; 85025; 96361; 96374; 96375; 99284; A9270; J2270; J2405; J7030

== ENCOUNTER 2023-10-29 09:30 | Outpatient (RCR) | payer OTHER, SELFPAY ==
--- NOTE | 2023-08-30 14:44 | PTOPEVAL1 ---
Assessment and note entered by Rory Santos Evaluation Information Assessment Status Evaluation Diagnosis left foot/ankle pain, bimalleolar fx Onset 08/28/22 Subjective Information Pt. reports she broke her left ankle in June of 2022. She reports she underwent surgery with Dr. Gomez on 08/28/22. She states that she was in a boot for a couple months after surgery. she states that she did not do therapy following her surgery. She states that has constant pain in the left ankle since she broke it. She states that she does use ankle braces for long distance walking and long time standing. She reports that she can currently only stand for about 10 minutes due to her pain. Pt. is currently unemployed but is trying to find work. She reports that she avoids going places with friends and family due to her pain. Pt. reports she cannot stand long enough to thoroughly care for her home. Pt. reports that she does have assistance with home activities. She reports that her goal for therapy is to reduce her pain and be able to walk for 30- 40 minutes to get through the store. Reported Pain Level Pain Score 7: Self Report Assessment PT Clinical Summary Pt. is a 22 year old female who is 1 year post surgery for bimalleolar fx at the left ankle. She presents with functional decline, impaired postural awareness, impaired gait, impaired l.e. strength, impaired ROM and pain. Continued skilled PT is indicated in order to improve these areas to allow the pt. to be able to complete all IADL's with improved comfort and efficiency. Plan of Care Interventions Electrical Stimulation,Gait Training,Hot Pack/Cold Pack,Manual Therapy,Patient/Caregiver Educati, Therapeutic Activities,Therapeutic Exercise PT Services Indicated Yes Treatment Frequency and 2x/week x 10 visits Duration These treatments will address the objective and functional deficits as defined above. The patient will be advanced safely and appropriately in order for the patient to progress towards his/her prior level of function. Additional exercises will be introduced and as well as a comprehensive home exercise program upon discharge, if needed, ?to ensure carryover of functional gains achieved in the clinic. This treatment plan has been reviewed and agreement upon by the patient.
--- NOTE | 2023-08-30 14:45 | OPREHPOC ---
Outpatient Therapy Plan of Care This is a Multidisciplinary Plan of Care that may contain components documented by all disciplines (PT, OT, and ST.) PT Problem 1 PT Problem #1 Knowledge Deficit PT Goal 1 Goal Pt. will be independent with a HEP addressing proximal l.e. and distal l.e. strength Target Visit 2 PT Problem 2 PT Problem #2 Impaired Range of Motion PT Goal 1 Goal Pt. will demonstrate 10-15 degrees active left ankle dorsiflexion ROM Target Visit 10 PT Problem 3 PT Problem #3 Impaired Functional Mobil PT Goal 1 Goal Pt. will be able to ambulate a distance of 1000' in 6 minutes indicating improve gait efficiency. Target Visit 10 PT Goal 2 Goal Pt. will reports being able to walk through the store for 30 minutes with 2/10 pain at worst. Target Visit 10 PT Problem 4 PT Problem #4 Impaired Strength PT Goal 1 Goal Pt. will demonstrate ability to complete 3-5 single limb heel raises on the left. Target Visit 10 PT Problem 5 PT Problem #5 Impaired Gait PT Goal 1 Goal Pt. will demonstrates improve mechanics during gait at the left l.e. maintaining more neutral hip position to avoid excessive toe out achieving improved toe off.
--- NOTE | 2023-09-05 13:46 | PCPTNOTE ---
Patient called & cancelled scheduled appointment this date due to no transportation.
--- NOTE | 2023-09-18 10:51 | PCPTNOTE ---
Patient cancelled due to no ride available today.
--- NOTE | 2023-09-25 12:19 | PCPTNOTE ---
Patient cancelled 5 minutes prior to appointment secondary to transportation issues.
--- NOTE | 2023-10-02 11:15 | PCPTNOTE ---
Patient cancelled secondary to transportation issue.
--- NOTE | 2023-10-09 11:08 | PCPTNOTE ---
Pt NS visit today not calling to cancel until 20 min after appt time.
--- NOTE | 2023-10-29 10:16 | PTOPDC ---
Assessment and note entered by Jacob Jimenez, PT Evaluation Information Assessment Status Discharge Diagnosis left foot/ankle pain, bimalleolar fx Onset 08/28/22 Subjective Information Reports that overall she is mostly having good days. Still fatigues easily and pain in sporadic. Reports that she has been discharged by her orthopedic surgeon. Really only struggles with distance walking at this time. Some days she will wake up with pain and other days she wakes up fine . Reported Pain Level Pain Score 2: Self Report Assessment PT Clinical Summary Patient has seen progress in ankle strength, ROM, and ambulation distance ability. She continues ot have pain off and on and is occasionally limited by it. She has many factors playing into this outside of orthopedic injury including arch collapse, weight, and activity level. Patient is showing full objective progress at this time and is suitable to discharge to [facility]. Plan of Care PT Services Indicated D/C to [facility]
--- NOTE | 2023-10-29 10:17 | OPREHPOC ---
Outpatient Therapy Plan of Care This is a Multidisciplinary Plan of Care that may contain components documented by all disciplines (PT, OT, and ST.) PT Problem 1 PT Problem #1 Knowledge Deficit PT Goal 1 Goal Pt. will be independent with a HEP addressing proximal l.e. and distal l.e. strength Target Visit 2 Progress Met PT Problem 2 PT Problem #2 Impaired Range of Motion PT Goal 1 Goal Pt. will demonstrate 10-15 degrees active left ankle dorsiflexion ROM Target Visit 10 Progress Met PT Problem 3 PT Problem #3 Impaired Functional Mobil PT Goal 1 Goal Pt. will be able to ambulate a distance of 1000' in 6 minutes indicating improve gait efficiency. Target Visit 10 Progress Partially Met Comment Greatly improved. Limited by other factors as well . PT Goal 2 Goal Pt. will reports being able to walk through the store for 30 minutes with 2/10 pain at worst. Target Visit 10 Progress Met PT Problem 4 PT Problem #4 Impaired Strength PT Goal 1 Goal Pt. will demonstrate ability to complete 3-5 single limb heel raises on the left. Target Visit 10 Progress Met PT Problem 5 PT Problem #5 Impaired Gait PT Goal 1 Goal Pt. will demonstrates improve mechanics during gait at the left l.e. maintaining more neutral hip position to avoid excessive toe out achieving improved toe off. Progress Met
== END 2023-10-29 11:29 | disposition home or self-care (01) ==
LOC: ANHPT 09:30
PROVIDERS: PCP Family Medicine; Visit Provider Orthopaedic Surgery
DX: M79.672 Pain in left foot (principal); S82.843D Displaced bimalleolar fracture of unspecified lower leg, subsequent encounter for closed fracture with routine healing; S93.432D Sprain of tibiofibular ligament of left ankle, subsequent encounter; Z87.81 Personal history of (healed) traumatic fracture; Z98.890 Other specified postprocedural states
CPT/HCPCS: 97110; 97112; 97161; 97530; 99199

== ENCOUNTER 2023-11-17 08:12 | Emergency (ER) | payer OTHER, SELFPAY ==
--- NOTE | ~2023-11-17 | XR_ITS ---
EXAMINATION: XR ankle LT min 3V DATE: 11/17/2023 08:34 INDICATION: Twisting left ankle injury TECHNIQUE: Anteroposterior, oblique, mortise, and lateral views of the left ankle were obtained. COMPARISON: None. FINDINGS: Again seen are old internally fixed fracture of the distal left fibula and medial malleolus. Distal f ibular fracture has solidly healed with 20 degrees lateral angulation. The fractures has been fixed w ith a retrograde intramedullary kj with distal interlocking screws. The intramedullary kj is fractu red at the level of the proximal most of 2 tunnels for an associated syndesmotic fixation. A pair of small metallic buttons are seen at either side of lucent tracts for a tightrope type syndesmotic fixa tion which extends across the metaphyseal regions of the distal tibia and fibula. Unchanged widening of the distal tibiofibular syndesmosis. There is also been failure of the attempted fixation of the m edial malleolar fragment which remains chronically nonunited and with few millimeter of lateral displ acement. There is increased lucency surrounding the distal tip of the medial malleolar fixation screw consistent with motion. The head of the screw appears to have rotated peripheral to the distal media l malleolar fragment. Unchanged 4 mm lateral subluxation of the talar dome with respect to the tibial plafond with widening of the medial clear space. No acute fractures or acute traumatic malalignment identified. Prominent likely chronic hallux valgus and pes planus. 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 Soft tissue swelling about the left ankle both medially and laterally. IMPRESSION: 1. No acute osseous abnormality. 2. 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 Reviewed, dictated and finalized at location A. IMPRESSION: 1. No acute osseous abnormality. 2. 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
--- NOTE | 2023-11-17 08:21 | ED.LOWEXIN ---
HPI - Extremity Injury (Lower) General Chief Complaint: Extremity Injury, Lower Stated Complaint: Left Leg/Ankle Pain Source: patient, RN notes reviewed and old records reviewed Mode of arrival: ambulatory Limitations: no limitations History of Present Illness HPI Narrative: 3-year-old female presents [facility] complaints left ankle pain. Patient reports she slipped on a wet surface of the porch and twisted her ankle and fell on Sunday. Patient states she has pain to the medial aspect and to the top of ankle region of her left ankle. Patient reports that her ankle has had increased swelling and she has been elevating her foot and has been taking Ibuprofen 800 mg for her discomfort. MD complaint: ankle injury (left from fall) Onset (ago): day(s) Injury: Left: ankle Type of Injury: other (twisting) Place: home Severity: moderate Exacerbating factors: weight bearing and movement Treatments prior to arrival: NSAIDS and other (elevation) Related Data Home Medications Medication Instructions Recorded Confirmed omeprazole magnesium 20 mg 20 mg PO TID 03/04/21 11/17/23 capsule,delayed release albuterol sulfate 90 mcg/actuation 1 inh inhalation DIRECTED 03/12/22 11/17/23 aerosol inhaler (ProAir HFA) sertraline 150 mg capsule 150 mg PO DAILY 08/10/22 11/17/23 amlodipine 10 mg tablet 10 mg PO DAILY 08/23/22 11/17/23 famotidine 40 mg tablet 40 mg PO BID 08/23/22 11/17/23 propranolol 10 mg tablet 20 mg PO TID PRN Anxiety 08/23/22 11/17/23 gabapentin 300 mg capsule 300 mg PO BID 11/17/23 11/17/23 topiramate 50 mg tablet 50 mg PO DAILY 11/17/23 11/17/23 Allergies Allergy/AdvReac Type Severity Reaction Status Date / Time No Known Allergies Allergy Verified 11/17/23 08:26 Review of Systems Review of Systems: CONSTITUTIONAL: Denies fever, chills, or sweats. EYES: Denies visual changes, redness, or discharge. ENT: Denies rhinorrhea, congestion, sore throat, or otalgia. CARDIOVASCULAR: Denies chest pain, palpitations, or edema. RESPIRATORY: Denies cough or dyspnea. GASTROINTESTINAL: Denies abdominal pain, nausea, vomiting, or diarrhea. GENITOURINARY: Denies dysuria or hematuria. SKIN: Denies rash or itching. scabbed abrasions to left knee MUSCULOSKELETAL: Denies back pain,positive for left ankle pain medial and frontal aspect of ankle. or myalgia. NEUROLOGIC: Denies headache, numbness, or weakness. PSYCHIATRIC:Positive for history of anxiety or depression. All systems reviewed & are unremarkable except as noted in HPI and below PMFSH Past Medical History Medical History (Updated 11/17/23 @ 09:18 by Anyi Lieberman NP) Anxiety Asthma Chronic GERD Depression HTN (hypertension) Morbid obesity with BMI of 60.0-69.9, adult Obstructive sleep apnea KOLTON treated with BiPAP Syndesmotic disruption of left ankle Surgical History Surgical History (Updated 11/17/23 @ 08:31 by Anyi Lieberman NP) H/O bilateral inguinal hernia repair History of dental surgery History of eye surgery History of placement of ear tubes History of tonsillectomy Status post ORIF of fracture of ankle [employer] (ventriculoperitoneal) shunt status Social History Social History Smoking status: Never smoker Alcohol intake: never Substance use: never Substance use type: does not use Lack of Transportation: No Lack of Food: Never True Current Housing: I Have Housing Concerned About Future Housing: No Difficulty Paying Gas/Electric Bills: No Difficulty Paying for Meds: No Currently Unemployed: No Education: High School Diploma/GED Difficulty w/ Childcare or Family Care: No Living arrangements: with family Spiritual care concerns: No Comments At time of signature, agree with nursing past medical, surgical, social and family history. There is no relevant family history pertinent to the presenting complaint Exam Narrative: GENERAL: Well-appearing, we
[2023-11-17 08:22] VITALS: BP 118/100; PULSE 95; RESP 20; TEMP 36.4; O2SAT 100
== END 2023-11-17 09:22 | disposition home or self-care (01) ==
PROVIDERS: Emergency Provider Registered Nurse; PCP Family Medicine
DX: M25.572 Pain in left ankle and joints of left foot (principal); J45.909 Unspecified asthma, uncomplicated; K21.9 Gastro-esophageal reflux disease without esophagitis; I10 Essential (primary) hypertension; E66.01 Morbid (severe) obesity due to excess calories; G47.33 Obstructive sleep apnea (adult) (pediatric); F41.9 Anxiety disorder, unspecified; F32.A Depression, unspecified
CPT/HCPCS: 73610; 99213; G0463

== ENCOUNTER 2023-11-27 14:17 | Emergency (ER) | payer OTHER, SELFPAY ==
--- NOTE | ~2023-11-27 | US_ITS ---
EXAMINATION: US abdomen limited DATE: 11/27/2023 19:54 INDICATION: RUQ pain TECHNIQUE: Multiple grayscale and Doppler ultrasound images of limited portions of the abdomen were o btained. COMPARISON: None available. FINDINGS: Imaging somewhat limited by body habitus. The visualized portions of the pancreas are andres l. The liver is normal with normal echogenicity and echotexture. No surface nodularity. Normal hepato petal flow in the main portal vein. The gallbladder is normal with no abnormal wall thickening, peric holecystic fluid or stones. The common bile duct measures 4 mm. There was no sonographic Mario sign. IMPRESSION: Normal limited abdominal ultrasound findings. Reviewed, dictated and finalized at location K.
--- NOTE | ~2023-11-27 | CT_ITS ---
EXAMINATION: CT brain wo con DATE: 11/27/2023 15:10 INDICATION: Headache TECHNIQUE: Computed tomography (CT) of the head was performed without intravenous contrast. Sagittal and coronal reconstructions were performed. The mA was adjusted according to patient size. Iterative reconstruction technique was employed. The dose-length product was 605.33 mGy-cm. COMPARISON: head CT dated 03/14/2023 FINDINGS: No acute intracranial hemorrhage, acute infarction or abnormal extra axial fluid collection. No abnor mal masses. No interval change in asymmetric mild enlargement of the body and trigone of the left lat eral ventricle and small right lateral ventricle. There is a right frontal ventriculostomy catheter w ith tip in the body of the right lateral ventricle. There is unchanged optic 8 mm rightward bulging o f the ventricular septum. The third and fourth ventricles remaining normal. The orbitsand paranasal s inuses are normal. The hyperpneumatized mastoids are clear. IMPRESSION: 1. Stable appearance of asymmetric mild enlargement of the left lateral ventricle and decreased size of the right lateral ventricle with unchanged position of a right ventriculostomy catheter with tip i n the body the right lateral ventricle. Reviewed, dictated and finalized at location A. IMPRESSION: 1. Stable appearance of asymmetric mild enlargement of the left lateral ventric le and decreased size of the right lateral ventricle with unchanged position of a right ventriculostomy catheter with tip in the body the right lateral ventri gus.
--- NOTE | ~2023-11-27 | XR_ITS ---
XR shunt series 11/27/2023 15:40 Indication: Headache Procedure: 7 views of the ventriculoperitoneal shunt Comparison: CT dated 11/27/2023 Findings: there is a right-sided ventriculoperitoneal shunt. Shunt appears to be intact. Shunt extend s from the head into the abdomen. Suture no well visualized in the abdomen due to patient body habitu s. No evidence for shunt discontinuity. Impression: 1: No significant abnormality of the right-sided ventriculoperitoneal shunt. Reviewed, dictated and finalized at location B. Impression: 1: No significant abnormality of the right-sided ventriculoperitoneal shunt.
[2023-11-27 14:26] VITALS: BP 136/74; PULSE 78; RESP 20; TEMP 37.3; O2SAT 94
[2023-11-27 16:25] VITALS: O2SAT 98
--- NOTE | 2023-11-27 16:53 | ED.HA ---
HPI - Headache General Chief Complaint: Headache Stated Complaint: headache, nausea Time Seen by Provider: 11/27/23 15:41 History of Present Illness HPI Narrative: Patient is a 23 year old female with history of premature , [employer] shunt placement, last placed around 6 months of , migraines here with HINDS, nausea, abdominal pain. Patient notes that her symptoms have been present for about 2 weeks and persistent in nature. Around the same day that she began having her headache she began having some diffuse upper abdominal pain. She notes that her headache is diffuse, associated with some light sensitivity, no blurry vision, no numbness or weakness in her arms or legs. She does follow with Dr. Orantes for her headaches, was previously on migraine medication, none of which seemed to help so should they were discontinued by Dr. Orantes. Given persistent headaches she was brought into the emergency department for evaluation of how her shunt and brain were looking. She has had 1 prior ED visit for headaches in the past, received treatment and had some improvement. In terms of her abdominal pain she notes it is also been present for the last 2 weeks. She notes she has had minimal stool output over the last 2 weeks and is worried that this could be playing a role. Only prior abdominal surgery was related to her shunt. She notes that the pain is most severe in her right upper quadrant. No fever or chills. No urinary symptoms. No cough or congestion. Related Data Home Medications Medication Instructions Recorded Confirmed omeprazole magnesium 20 mg 20 mg PO TID 03/04/21 11/17/23 capsule,delayed release albuterol sulfate 90 mcg/actuation 1 inh inhalation DIRECTED 03/12/22 11/17/23 aerosol inhaler (ProAir HFA) sertraline 150 mg capsule 150 mg PO DAILY 08/10/22 11/17/23 amlodipine 10 mg tablet 10 mg PO DAILY 08/23/22 11/17/23 famotidine 40 mg tablet 40 mg PO BID 08/23/22 11/17/23 propranolol 10 mg tablet 20 mg PO TID PRN Anxiety 08/23/22 11/17/23 gabapentin 300 mg capsule 300 mg PO BID 11/17/23 11/17/23 topiramate 50 mg tablet 50 mg PO DAILY 11/17/23 11/17/23 Allergies Allergy/AdvReac Type Severity Reaction Status Date / Time No Known Allergies Allergy Verified 11/17/23 08:26 Review of Systems Review of Systems: All systems reviewed & are unremarkable except as noted in HPI and below PMFSH Past Medical History Medical History (Updated 11/27/23 @ 20:26 by Renee Lobato MD) Anxiety Asthma Chronic GERD Depression HTN (hypertension) Morbid obesity with BMI of 60.0-69.9, adult Obstructive sleep apnea KOLTON treated with BiPAP Syndesmotic disruption of left ankle Surgical History Surgical History (Updated 11/17/23 @ 08:31 by Anyi Lieberman NP) H/O bilateral inguinal hernia repair History of dental surgery History of eye surgery History of placement of ear tubes History of tonsillectomy Status post ORIF of fracture of ankle [employer] (ventriculoperitoneal) shunt status Social History Social History Smoking status: Never smoker Alcohol intake: never Substance use: never Substance use type: does not use Lack of Transportation: No Lack of Food: Never True Current Housing: I Have Housing Concerned About Future Housing: No Difficulty Paying Gas/Electric Bills: No Difficulty Paying for Meds: No Currently Unemployed: No Education: High School Diploma/GED Difficulty w/ Childcare or Family Care: No Living arrangements: with family Spiritual care concerns: No Exam Narrative: GENERAL: Well-appearing, well-nourished, and in no acute distress. HEAD: Normocephalic, atraumatic. EYES: PERRLA and EOMI. ENT: Nares clear. Mucous membranes moist. NECK: Supple. CHEST: Clear to auscultation. No respiratory distress. HEART: Regular rate and rhythm. Normal peripheral pulses. ABDOMEN: Soft, Diffuse abdominal tenderness, worse in the right u
[2023-11-27 17:04] VITALS: BP 128/66; PULSE 79; RESP 20; O2SAT 98
[2023-11-27] MEDS: diphenhydrAMINE HCl INJ 50 MG/ML VIAL 25 MG IV PUSH (18:10)
[2023-11-27] MEDS: LACTATED RINGERS 1,000 ML 999 ML IV CONT (18:10)
[2023-11-27] MEDS: METOCLOPRAMIDE HCL INJ 10 MG/2 ML VIAL IV PUSH (18:11)
[2023-11-27] MEDS: ACETAMINOPHEN 500 MG TABLET 1000 MG PO (18:11)
[2023-11-27 18:12] LABS: Basophils Percent Auto 0.4 % (0.2-1.2); Eosinophils Absolute Auto 0.2 K/mm3 (0-0.3); Eosinophils Percent Auto 2.1 % (0-4.4); Hematocrit 36.6 % (37.0-47.0); Hemoglobin 10.8 g/dL (12.0-15.0); Immature Granulocyte Absolute 0.02 K/mm3 (0.00-0.031); Immature Granulocyte Percent A 0.2 % (0-0.5); Lymphocytes Absolute Auto 2.61 K/mm3 (0.9-3.2); Lymphocytes Percent Auto 31.8 % (18.3-44.2); Mean Corpuscular HGB Conc 29.5 g/dl (32-36); Mean Corpuscular Hemoglobin 22.4 pg (26-34); Mean Corpuscular Volume 75.9 fl (80-100); Mean Platelet Volume 9.9 fl (7.4-10.4); Monocytes Absolute Auto 0.5 K/mm3 (0.1-0.6); Monocytes Percent Auto 6.3 % (2.6-8.5); Neutrophils Absolute Auto 4.9 K/mm3 (1.3-6.7); Neutrophils Percent Auto 59.2 % (45.5-73.1); Platelet Count Result 435 k/mm3 (150-375); Red Blood Count 4.82 M/mm3 (4.2-5.4); Red Cell Distribution Width 15.9 % (11.5-14.5); White Blood Count 8.2 K/mm3 (4.5-10.0)
[2023-11-27] MEDS: MAGNESIUM SULF 2 GM/WATER 50ML 2 GM/50 ML BAG IVPB (18:12)
[2023-11-27 18:33] LABS: Platelet Estimate Adequate (Adequate)
[2023-11-27 18:34] LABS: Hypochromasia 1+; Schistocytes None Seen; Stomatocytes 1+
[2023-11-27 18:46] LABS: Appearance Urine Clear (Clear); Bilirubin Urine Negative (Negative); Blood Urine Negative (Negative); Color Urine Yellow (Yellow); Glucose Urine UA Negative (Negative); Ketones Urine Negative (Negative); Leukocyte Esterase Ur Negative LEU/UL (Negative); Nitrate Urine Negative (Negative); Protein Urine Negative (Negative)
[2023-11-27 18:49] LABS: Alanine Aminotransferase 13 U/L (6-35); Albumin Level 3.8 g/dL (3.5-5.1); Alkaline Phosphatase 60 U/L (38-126); Anion Gap 3 mmol/L (4-12); Aspartate Amino Transferase 22 U/L (14-36); Bilirubin,Total 0.5 mg/dL (0.2-1.3); Blood Urea Nitrogen 15 mg/dL (7-17); Calcium 8.7 mg/dL (8.4-10.2); Carbon Dioxide 27 mmol/L (22-30); Chloride 106 mmol/L (98-107); Estimated CRCL calculation 179 ml/min; Estimated Glomerular Filt Rate > 60; Glucose 88 mg/dL (65-110); Lipase 29 U/L (23-300); Potassium 4.3 mmol/L (3.4-5.0); Sodium 136 mmol/L (137-145)
[2023-11-27 18:50] LABS: Add Urine Microscopic? NO
[2023-11-27 19:00] VITALS: BP 115/56; PULSE 78; RESP 15; O2SAT 99
[2023-11-27 20:41] VITALS: BP 113/55; PULSE 80; RESP 19; TEMP 36.8; O2SAT 100
== END 2023-11-27 20:42 | disposition home or self-care (01) ==
PROVIDERS: Emergency Provider Student in an Organized Health Care Education/Training Program; PCP Family Medicine
DX: R51.9 Headache, unspecified (principal); K59.00 Constipation, unspecified; R10.84 Generalized abdominal pain; F41.9 Anxiety disorder, unspecified; J45.909 Unspecified asthma, uncomplicated; I10 Essential (primary) hypertension; E66.01 Morbid (severe) obesity due to excess calories; Z68.44 Body mass index [BMI] 60.0-69.9, adult; G47.33 Obstructive sleep apnea (adult) (pediatric); K21.9 Gastro-esophageal reflux disease without esophagitis; Z98.2 Presence of cerebrospinal fluid drainage device
CPT/HCPCS: 36415; 70250; 70450; 71045; 74018; 76705; 80053; 81003; 81025; 83690; 85025; 96365; 96366; 96375; 99284; A9270; J1200; J2765; J3475; J7120

== ENCOUNTER 2025-05-30 12:33 | Emergency (ER) | payer OTHER, SELFPAY ==
[2025-05-30 12:44] VITALS: BP 124/75; PULSE 91; RESP 20; TEMP 36.9; O2SAT 100
--- NOTE | 2025-05-30 12:48 | ED.EAR ---
HPI - Ear Problem General Chief complaint: Ear Stated complaint: Ears Irritation Time Seen by Provider: 05/30/25 12:48 Source: patient, RN notes reviewed and old records reviewed Mode of arrival: ambulatory Limitations: no limitations History of Present Illness HPI Narrative: 24year old female who presents to [facility] care with complaints of left ear pain since . Patient reports that pain has progressively gotten worse, ear feels irritated. She reports that she has not taken any OTC medication for her discomfort, denies any cough or any runny nose or sinus congestion. Patient reports that she has had history of ear tubes in the past and also has had prior ear infectiona.Patient reports that she has been taking tramadol as ordered for her chronic pain but its not helping her ears. MD Complaint: ear pain Location: left ear Duration: constant Severity: moderate Relieving factors: nothing Discharge from ear: Reports no Associated symptoms ear: other (pain to left ear) Treatment prior to arrival: other (takes daily tramadol for chronic pain) Related Data Home Medications ?Medication ?Instructions ?Recorded ?Confirmed ?Last Taken ?Type omeprazole magnesium 20 mg 20 mg PO TID 03/04/21 07/08/24 Unknown History capsule,delayed release albuterol sulfate 90 mcg/actuation 1 inh inhalation DIRECTED 03/12/22 07/08/24 Unknown History aerosol inhaler (ProAir HFA) sertraline 150 mg capsule 150 mg PO DAILY 08/10/22 07/08/24 08/28/22 History famotidine 40 mg tablet 40 mg PO BID 08/23/22 07/08/24 08/28/22 History propranolol 10 mg tablet 20 mg PO TID PRN Anxiety 08/23/22 07/08/24 08/28/22 History gabapentin 300 mg capsule 300 mg PO BID 11/17/23 07/08/24 Unknown History topiramate 50 mg tablet 50 mg PO DAILY 11/17/23 07/08/24 Unknown History buspirone 15 mg tablet mg 05/30/25 Unknown History losartan 50 mg tablet mg 05/30/25 Unknown History Allergies Allergy/AdvReac Type Severity Reaction Status Date / Time No Known Allergies Allergy Verified 05/30/25 12:47 Review of Systems Review of Systems: CONSTITUTIONAL: Denies malaise, chills, sweats, or fever. EYES: Denies visual changes, redness, or discharge. ENT: Reports rhinorrhea, congestion, no sinus pain, positive for left otalgia and no sore throat. CARDIOVASCULAR: Denies chest pain, palpitations, or edema. RESPIRATORY: Reports no acute cough.? Denies dyspnea. GASTROINTESTINAL: Denies abdominal pain, nausea, vomiting, diarrhea SKIN: Denies rash or itching. MUSCULOSKELETAL: Denies myalgia. NEUROLOGIC: Denies headache. All systems reviewed & are unremarkable except as noted in HPI and below PMFSH Past Medical History Medical History Obstructive sleep apnea Depression Anxiety Chronic GERD [place] treated with BiPAP Asthma HTN (hypertension) Morbid obesity with BMI of 60.0-69.9, adult Syndesmotic disruption of left ankle Surgical History Surgical History History of eye surgery History of dental surgery H/O bilateral inguinal hernia repair History of placement of ear tubes History of tonsillectomy Status post ORIF of fracture of ankle TAR HEATER (ventriculoperitoneal) shunt status Social History Social History Smoking status: Never smoker Alcohol intake: never Substance use: never Substance use type: does not use Lack of Transportation: No Lack of Food: Never True Current Housing: I Have Housing Concerned About Future Housing: No Difficulty Paying Gas/Electric Bills: No Difficulty Paying for Meds: No Currently Unemployed: No Education: High School Diploma/GED Difficulty w/ Childcare or Family Care: No Living arrangements: with family Spiritual care concerns: No Comments At time of signature, agree with nursing past medical, surgical, social and family history. There is no relevant family history pertinent to the presenting complaint Exam Narrative: GENERAL: Well-appearing, well-nourished,obese, and in no acute distress. HEAD: Normocephalic EYES: PERRLA, conjunctivae clear ENT: Nares clear, turbinates edematous and erythematous, clear discharge. Mucous membranes moist.Left TM red and bulging, Right TM pearly mayers with dull light reflex bilaterally; no tragal tenderness. Oropharynx erythematous without lesions. Tonsils not present and without exudate, no drooling, no hoarseness, no trismus, uvula midline. NECK: Supple. No lymphadenopathy CHEST: Clear to auscultation, breath sounds equal. No wheezing, rhonchi, rales, or stridor. No respiratory distress, speaks in full sentences.no cough noted SAO2 100% on room air HEART: Regular rate and rhythm. No murmur heard. SKIN: Warm, dry, no rash. NEURO: Alert and oriented x3. PSYCH: Normal mood and affect Course Course Emergency Course: Patient is aware of diagnosis, understands and agrees to treatment plan.? Anticipatory guidance given.? Patient agrees to follow-up as directed and is aware of reasons to seek care at the emergency department. Portions of this record may have been created with voice recognition software Level of Care: Express Care Visit Vital Signs Vital signs: Vital Signs Temperature 36.9 C 05/30/25 12:44 Pulse Rate 91 05/30/25 12:44 Respiratory Rate 20 05/30/25 12:44 Blood Pressure 124/75 05/30/25 12:44 Pulse Oximetry 100 05/30/25 12:44 Oxygen Delivery Room Air 05/30/25 12:44 Temperature 36.9 C 05/30/25 12:44 Pulse Rate 91 05/30/25 12:44 Respiratory Rate 20 05/30/25 12:44 Blood Pressure 124/75 05/30/25 12:44 Pulse Oximetry 100 05/30/25 12:44 Oxygen Delivery Room Air 05/30/25 12:44 Reviewed Medical Decision Making Differential Diagnosis Differential Diagnosis: URI, otitis media, otitis externa, otalgia, viral infection Medical Records Medical records reviewed: Yes I reviewed the external patient's medical records. Vital Signs Vital Signs: Vital Signs Temperature 36.9 C 05/30/25 12:44 Pulse Rate 91 05/30/25 12:44 Respiratory Rate 20 05/30/25 12:44 Blood Pressure 124/75 05/30/25 12:44 Pulse Oximetry 100 05/30/25 12:44 Oxygen Delivery Room Air 05/30/25 12:44 Temperature 36.9 C 05/30/25 12:44 Pulse Rate 91 05/30/25 12:44 Respiratory Rate 20 05/30/25 12:44 Blood Pressure 124/75 05/30/25 12:44 Pulse Oximetry 100 05/30/25 12:44 Oxygen Delivery Room Air 05/30/25 12:44 reviewed Critical Care Time Critical Care Time Critical Care Time: No Discharge Plan Discharge Clinical Impression: Otitis media of left ear Qualifiers: Otitis media type: serous Chronicity: acute Recurrence: not specified as recurrent Qualified Code(s): H65.02 - Acute serous otitis media, left ear Patient Disposition: Home Condition: Stable Instructions: Antibiotic Form, Ear Infection (GEN) Additional Instructions: Increase fluids especially juices and water [id number] cough and cold medicine of your choice for your symptoms Zyrtec or Claritin daily for sinus congestion and drainage Continue your inhaler/nebulizer as directed heat to the face 20-30 minutes 4-6 times a day for pain Salt water gargles, throat lozenges or throat sprays as desired Antibiotic as directed--finished the medication Tylenol or ibuprofen for pain or fever per package direction Patient Language: Marshallese Prescriptions: New ibuprofen 400 mg tablet 400 mg PO Q6H PRN (Reason: fever or pain) Qty: 20 0RF amoxicillin 500 mg capsule 1,000 mg PO Q12H Qty: 40 0RF No Action gabapentin 300 mg capsule 300 mg PO BID topiramate 50 mg tablet 50 mg PO DAILY buspirone 15 mg tablet losartan 50 mg tablet albuterol sulfate [ProAir HFA] 90 mcg/actuation HFA aerosol inhaler 1 inh INHALATION DIRECTED Patient Comments: Pt stated weeks sertraline 150 mg capsule 150 mg PO DAILY omeprazole magnesium 20 mg capsule,delayed release(DR/EC) 20 mg PO TID famotidine 40 mg tablet 40 mg PO BID propranolol 10 mg tablet 20 mg PO TID PRN (Reason: Anxiety) ondansetron 4 mg tablet,disintegrating 4 mg PO Q8H PRN (Reason: nausea and vomiting) Qty: 10 0RF tramadol 50 mg tablet 50 mg PO Q4H PRN (Reason: pain) Qty: 30 1RF Follow-up/Referrals: Vinod,DO Pino [Primary Care Provider] Quality [place] Coma Scale Eyes: Open Verbal: Oriented and Alert Motor: Follows [place] Coma Total Score: 15
== END 2025-05-30 13:16 | disposition home or self-care (01) ==
PROVIDERS: Emergency Provider Registered Nurse; PCP Student in an Organized Health Care Education/Training Program
DX: H65.02 Acute serous otitis media, left ear (principal); I10 Essential (primary) hypertension; J45.909 Unspecified asthma, uncomplicated; K21.9 Gastro-esophageal reflux disease without esophagitis; G47.33 Obstructive sleep apnea (adult) (pediatric); E66.01 Morbid (severe) obesity due to excess calories; Z68.45 Body mass index [BMI] 70 or greater, adult; F41.9 Anxiety disorder, unspecified; F32.A Depression, unspecified
CPT/HCPCS: 99213; G0463